=== PATIENT | female | born 1970 | race Two or more races ===

== ENCOUNTER 2020-04-05 06:55 | Inpatient (IN) | payer MEDICARE, MEDICAID ==
[~2020-04-05] VITALS: Ht 157.5 cm; Wt 50.4 kg
[2020-04-05 07:02] VITALS: BP 107/72
--- NOTE | 2020-04-05 07:05 | Emergency Room Report ---
History of Present Illness General Chief Complaint: Syncope Source: Patient Present Illness HPI Patient nearly passed out when she stood up this morning. Family were able to catch her and lay her down. She felt somewhat better when laying down. Paramedics found that she was orthostatic. She also remained tachycardic. Accu -Chek was normal in the field. She has a history of colon cancer and is receiving chemotherapy actively. She has a Port-A-Cath in her right chest. She complains about some shortness of breath today. She denies fevers or chills. She has been passing some blood in her stool but the stool is been brown in color. She denies dysuria, sore throat, productive cough or chest pain. She denies body pain at this time. Discussed with her oncologist Dr. Nunez at [facility]. He states that she has colon cancer with metastasis to liver brain and lung. Her bilirubin in the past prior to chemotherapy was 5. After chemotherapy is been down to the 1.3 range. She has 40% liver function at this time. She has metastasis to her lungs that also in the mediastinum and peripherally. She also has brain metastasis and has undergone radiation. Before chemotherapy the patient had ascites and this was improved after chemotherapy. At this point she is at the end stage of her illness although he is still treating her with chemotherapy. He stated that the chemotherapy might have effects of increasing her white blood cell count. Pelvic mass also. Her oncologist had a discussion with her about end-of-life treatment. She did not sign a DNR agreement with him. 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: No Patient History Past Medical History: see triage record, other - Colon cancer Past Surgical History: other - Port-A-Cath Social History: Denies: smoking, alcohol use, drug use Social History Narrative Born in [facility], lives with family Reviewed Nursing Documentation: PMH: Agreed; PSxH: Agreed Nursing Documentation-PMH Past Medical History: No History, Except For Review of Systems All Other Systems: negative except mentioned in HPI Physical Exam Vital Signs Date Time Temp Pulse Resp B/P (MAP) Pulse Ox O2 Delivery O2 Flow Rate FiO2 7/15/20 06:45 98.4 110 16 112/69 (83) 98 Room Air Sp02 EP Interpretation: reviewed, normal General Appearance: well appearing, no apparent distress, GCS 15 Head: normocephalic Eyes: bilateral eye PERRL, bilateral eye conjunctivae pale ENT: normal pharynx, moist mucus membranes Neck: full range of motion, supple, no meningismus Respiratory: lungs clear, normal breath sounds, no respiratory distress, other - Port-A-Cath right Cardiovascular #1: tachycardia Cardiovascular #2: 2+ radial (R) Gastrointestinal: normal inspection, normal bowel sounds, non tender, non- distended, mass - Suprapubic Genitourinary: no CVA tenderness Musculoskeletal: back normal, normal range of motion, no calf tenderness Neurologic: alert, oriented x3, grossly normal Psychiatric: mood/affect normal Skin: no rash, warm/dry, pallor, other - Port-A-Cath site without erythema or induration Procedures Critical Care Time Critical Care Time Total Critical Care Time: 45 min bedside evaluation and treatment excludes procedures (EKG). Reason for critical care: Sepsis, determination of past medical history, repeat evaluations, discussion with oncologist regarding history and end-of-life decisions Possible complications: hypotension, hypertension, RI, shock, arrhythmias, metabolic acidosis, end organ damage, respiratory failure. Interventions: Sepsis resuscitation, analgesia, tracing antibiotics, sepsis reevaluation Course: Patient presented post syncope. Patient was orthostatic in the field. Port-A-Cath accessed and fluid resuscitation initiated. Elevated white count and lactic acid led to more aggressive fluid resuscitation as well as antibiotic initiation. Long discussion with treating oncologist regarding patient's status and determination of level of care. Discussion with family. Findings discussed with patient. Tachycardia resolved and no evidence of hypotension. Due to elevated liver function tests ultrasound performed. No suggestion of cholecystitis. Liver and other organ metastases identified. Consultations: nursing staff, EMS, family, treating oncologist Performed by: Dr. Govea Tolerated well condition = serious Medical Decision Making Diagnostic Impression: Primary Impression: Sepsis Qualified Codes: A41.9 - Sepsis, unspecified organism; R65.20 - Severe sepsis without septic shock Additional Impressions: Syncope Qualified Codes: R55 - Syncope and collapse Metastatic colon cancer in female COVID-19 ruled out ER Course Patient undergoing chemotherapy for colon cancer presents with needing near syncope. Differential includes acute myocardial infarction, sepsis, GI bleed, anemia electrolyte imbalance, COVID-19 amongst others. Patient evaluated with EKG, chest x-ray and labs. She is tachycardic at this time and needs fluids. Patient placed on a registered nurse cardiac. We will access her Port-A-Cath for further care. Called with WBC = 46K. Antibiotics begun. Starting vancomycin and Zosyn initially. If urine is the source will add Levaquin. If urine is clear we will add Flagyl. Consideration of adding azithromycin also. Given the seriousness of this patient's presentation COVID-19 rapid testing performed. Chest x-ray with increased quezada at the left base and Port-A-Cath. Lung nodules. Difficult to ascertain if infiltrates although patient is satting in 100% which makes this less likely. Rapid COVID-19 test negative. Attempting to call her private physicians Andrey Mayer. Attempting to call her oncologist Dr. Nunez. Long discussion with Dr. Nunez. (See Hx) Expanded antibiotic coverage - added both Levaquin and Flagyl. U/S as below. Metastases and masses. Patient with abdominal pain. Requesting Dilaudid. HR 88, clinically improved. BP slightly low. Patient admitted telemetry. Laboratory Tests Test 04/05/20 07:03 04/05/20 07:45 04/05/20 08:45 White Blood Count 46.0 K/UL (4.8-10.8) *H Red Blood Count 4.29 M/UL (4.20-5.40) Hemoglobin 10.7 G/DL (12.0-16.0) L Hematocrit 35.4 % (37.0-47.0) L Mean Corpuscular Volume 82 FL (80-99) Mean Corpuscular Hemoglobin 25.0 PG (27.0-31.0) L Mean Corpuscular Hemoglobin Concent 30.3 G/DL (32.0-36.0) L Red Cell Distribution Width 19.7 % (11.6-14.8) H Platelet Count 223 K/UL (150-450) Mean Platelet Volume 8.1 FL (6.5-10.1) Neutrophils (%) (Auto) % (45.0-75.0) Lymphocytes (%) (Auto) % (20.0-45.0) Monocytes (%) (Auto) % (1.0-10.0) Eosinophils (%) (Auto) % (0.0-3.0) Basophils (%) (Auto) % (0.0-2.0) Differential Total Cells Counted 100 Neutrophils % (Manual) 87 % (45-75) H Lymphocytes % (Manual) 6 % (20-45) L Monocytes % (Manual) 1 % (1-10) Eosinophils % (Manual) 0 % (0-3) Basophils % (Manual) 0 % (0-2) Band Neutrophils 6 % (0-8) Platelet Estimate Adequate Platelet Morphology Normal Hypochromasia 1+ Anisocytosis 2+ Prothrombin Time 11.3 SEC (9.30-11.50) Prothrombin Time INR 1.0 (0.9-1.1) Activated Partial Thromboplast Time 28 SEC (23-33) Sodium Level 132 MMOL/L (136-145) L Potassium Level 4.1 MMOL/L (3.5-5.1) Chloride Level 99 MMOL/L (98-107) Carbon Dioxide Level 21 MMOL/L (21-32) Anion Gap 13 mmol/L (5-15) Blood Urea Nitrogen 13 mg/dL (7-18) Creatinine 0.7 MG/DL (0.55-1.30) Estimated Glomerular Filtration Rate > 60 mL/min (>60) Glucose Level 86 MG/DL (74-106) Lactic Acid Level 4.30 mmol/L (0.4-2.0) H 1.30 mmol/L (0.66-2.22) Calcium Level 8.7 MG/DL (8.5-10.1) Magnesium Level 1.7 MG/DL (1.8-2.4) L Ferritin 405 NG/ML (8-388) H Total Bilirubin 1.5 MG/DL (0.2-1.0) H Direct Bilirubin 0.7 MG/DL (0.0-0.3) H Aspartate Amino Transferase (AST) 125 U/L (15-37) H Alanine Aminotransferase (ALT) 154 U/L (12-78) H Alkaline Phosphatase 547 U/L (46-116) H Lactate Dehydrogenase 456 U/L (81-234) H Total Creatine Kinase 32 U/L (26-308) Troponin I 0.000 ng/mL (0.000-0.056) C-Reactive Protein, Quantitative 2.2 mg/dL (0.00-0.90) H Pro-B-Type Natriuretic Peptide 73 pg/mL (0-125) Total Protein 6.9 G/DL (6.4-8.2) Albumin 2.5 G/DL (3.4-5.0) L Globulin 4.4 g/dL Albumin/Globulin Ratio 0.6 (1.0-2.7) L Lipase 243 U/L (73-393) Urine Color Yellow Urine Appearance Clear Urine pH 7 (4.5-8.0) Urine Specific [place] 1.010 (1.005-1.035) Urine Protein 1+ (NEGATIVE) H Urine Glucose (UA) Negative (NEGATIVE) Urine Ketones Negative (NEGATIVE) Urine Blood 1+ (NEGATIVE) H Urine Nitrite Negative (NEGATIVE) Urine Bilirubin Negative (NEGATIVE) Urine Urobilinogen 4 MG/DL (0.0-1.0) H Urine Leukocyte Esterase 2+ (NEGATIVE) H Urine RBC 0-2 /HPF (0 - 2) Urine WBC 2-4 /HPF (0 - 2) Urine Squamous Epithelial Cells Occasional /LPF Urine Bacteria Occasional /HPF (NONE) Microbiology Date/Time Source Procedure Growth Status 04/05/20 07:30 Nasopharynx SARS-CoV-2 RdRp Gene Assay - Final Complete EKG Diagnostic Results Rate: tachycardiac Rhythm: NSR ST Segments: no acute changes Rhythm Strip Diag. Results Rhythm: no PVC's, no ectopy, other - Sinus tachycardia Chest X-Ray Diagnostic Results Chest X-Ray Diagnostic Results : Chest X-Ray Ordered: Yes # of Views/Limited/Complete: 1 View Indication: Shortness of Breath EP Interpretation: Yes Interpretation: no effusion, no pneumothorax, other - Port-A-Cath right, increased quezada left base CT/MRI/US Diagnostic Results CT/MRI/US Diagnostic Results : Imaging Test Ordered: Ultrasound abdomen Impression Impression: 8.3 x 6.3 cm pelvic soft tissue mass. Particularly given stated clinical history of hysterectomy, the possibility of neoplasm should be considered Pancreatic soft tissue mass, likewise raises concern for neoplasm. Heterogeneous liver, particularly striking in the left hepatic lobe which appears enlarged. While possibly on the basis of hepatocellular disease such is geographic fatty infiltration, appearance and presence of above reported findings raises concern for neoplastic infiltration. In addition, there is a discrete 1.8 cm mass within or adjacent to the left hepatic lobe Recommend CT for further evaluation of the above findings if these have not been worked up elsewhere Cholelithiasis. Gallbladder wall thickening raises possibility of acute cholecystitis. Consider hepatobiliary nuclear scan if there is high clinical suspicion Negative for dilated bile ducts Last Vital Signs Date Time Temp Pulse Resp B/P (MAP) Pulse Ox O2 Delivery O2 Flow Rate FiO2 04/05/20 16:00 97.9 82 18 91/58 (69) 99 04/05/20 12:35 Room Air Status: improved Disposition: ADMITTED INPATIENT Condition: Serious James Govea MD Apr 05, 2020 07:05
[2020-04-05 07:22] LABS: HEMATOCRIT 35.4 % (37.0-47.0); HEMOGLOBIN 10.7 G/DL (12.0-16.0); MEAN CORPUSCULAR VOLUME 82 FL (80-99); PLATELET COUNT 223 K/UL (150-450); RED BLOOD COUNT 4.29 M/UL (4.20-5.40); RED CELL DISTRIBUTION WIDTH 19.7 % (11.6-14.8)
[2020-04-05 07:37] LABS: ANION GAP 13 mmol/L (5-15); BLOOD UREA NITROGEN 13 mg/dL (7-18); CALCIUM 8.7 MG/DL (8.5-10.1); CARBON DIOXIDE 21 MMOL/L (21-32); CHLORIDE 99 MMOL/L (98-107); CREATININE 0.7 MG/DL (0.55-1.30); POTASSIUM 4.1 MMOL/L (3.5-5.1); SODIUM 132 MMOL/L (136-145)
[2020-04-05] MEDS ORDERED: Vancomycin 1 GM in NS 275 ML IVPB ONE (07:45)
[2020-04-05] MEDS ORDERED: Piperacillin/Tazobactam 3.375 GM in NS 110 ML IVPB ONE (07:45)
[2020-04-05 07:51] LABS: ALANINE AMINOTRANSFERASE 154 U/L (12-78); ALBUMIN 2.5 G/DL (3.4-5.0); ALBUMIN/GLOBULIN RATIO 0.6 (1.0-2.7); ALKALINE PHOSPHATASE 547 U/L (46-116); ASPARTATE AMINO TRANSFERASE 125 U/L (15-37); BILIRUBIN,TOTAL 1.5 MG/DL (0.2-1.0); CREATINE KINASE 32 U/L (26-308)
[2020-04-05 07:52] LABS: BILIRUBIN,DIRECT 0.7 MG/DL (0.0-0.3)
[2020-04-05 08:28] LABS: APPEARANCE,URINE CLEAR; BILIRUBIN, URINE NEGATIVE (NEGATIVE); GLUCOSE, URINE (UA) NEGATIVE (NEGATIVE); KETONES,URINE NEGATIVE (NEGATIVE); LEUKOCYTE ESTERASE ,URINE 2+ (NEGATIVE); NITRITE,URINE NEGATIVE (NEGATIVE); PH,URINE 7 (4.5-8.0); PROTEIN,URINE 1+ (NEGATIVE); UROBILINOGEN,URINE 4 MG/DL (0.0-1.0)
[2020-04-05 08:29] LABS: COLOR,URINE YELLOW
[2020-04-05] MEDS ORDERED: TRAMADOL HCL50 MG ORAL (08:38)
[2020-04-05] MEDS ORDERED: ZOFRAN4 M3 ORAL (08:38)
[2020-04-05 09:13] VITALS: BP 102/75
[2020-04-05] MEDS ORDERED: Hydromorphone 0.5mg/0.5ml inj ONE (10:14)
[2020-04-05] MEDS ORDERED: Hydromorphone 0.5mg/0.5ml inj IVP ONE (10:15)
[2020-04-05 11:00] VITALS: BP 99/65
--- NOTE | 2020-04-05 11:08 | Diagnostic Imaging Report ---
Indication: Abdominal pain Technique: Torrez-scale and duplex images of the upper abdomen were obtained Comparison: none Findings: Gallbladder contains gallstones. The gallbladder wall is slightly thickened, measuring just over 3 mm thick. Sonographic Coe's sign is negative. Common bile duct measures 3 mm in diameter. No intrahepatic biliary ductal dilatation. Liver demonstrates heterogeneous echogenicity. There is a discrete slightly hyperechoic mass measuring 1.8 cm within or adjacent to the left hepatic lobe. The left hepatic lobe is diffusely enlarged and heterogeneous, appears infiltrated. Portal vein and hepatic veins are patent. 3 cm hypoechoic lesion is seen within or adjacent to the pancreatic body. Spleen is unremarkable. Left kidney measures cm in length. Right kidney measures 11.2 cm length. Both kidneys demonstrate normal echogenicity. There is no hydronephrosis. No focal abnormality . Abdominal aorta is partially obscured by bowel gas, visualized portions are non-aneurysmal . There is an 8.3 x 6.3 cm soft tissue mass within the pelvis. Patient is reportedly status post hysterectomy. The bladder is unremarkable. Impression: 8.3 x 6.3 cm pelvic soft tissue mass. Particularly given stated clinical history of hysterectomy, the possibility of neoplasm should be considered Pancreatic soft tissue mass, likewise raises concern for neoplasm. Heterogeneous liver, particularly striking in the left hepatic lobe which appears enlarged. While possibly on the basis of hepatocellular disease such is geographic fatty infiltration, appearance and presence of above reported findings raises concern for neoplastic infiltration. In addition, there is a discrete 1.8 cm mass within or adjacent to the left hepatic lobe Recommend CT for further evaluation of the above findings if these have not been worked up elsewhere Cholelithiasis. Gallbladder wall thickening raises possibility of acute cholecystitis. Consider hepatobiliary nuclear scan if there is high clinical suspicion Negative for dilated bile ducts
[2020-04-05] MEDS ORDERED: Omnipaque-300 100ml vial INJ PRN (11:30)
[2020-04-05] MEDS ORDERED: Piperacillin/Tazobactam 3.375 GM in NS 110 ML IVPB SCH (14:00)
[2020-04-05] MEDS: Piperacillin/Tazobactam 3.375 GM in NS 110 ML IVPB SCH ×2 (14:08→22:13)
[2020-04-05] MEDS: Heparin 5000 units/ml inj SUBQ SCH ×2 (14:08→22:12)
--- NOTE | 2020-04-05 14:18 | Diagnostic Imaging Report ---
Indication: Abnormal chest sounds Technique: One view of the chest Comparison: none Findings: A 2 cm nodule is seen in the lower right lung. Other smaller nodules are seen bilaterally. Normal heart size. No infiltrates. The pleural spaces are clear. There is a right chest port catheter Impression: Bilateral lung nodules. Per the electronic medical record, patient has history of pulmonary metastases. No acute process Right chest port catheter
[2020-04-05 16:00] VITALS: BP 91/58
[2020-04-05] MEDS ORDERED: HYDROmorphone 1mg/ml Carpuject IVP PRN (18:00)
--- NOTE | 2020-04-05 18:15 | Consultation ---
DATE OF CONSULTATION: 04/05/2020 INFECTIOUS DISEASES CONSULTATION CONSULTING PHYSICIAN: Jeffrey Szymanski MD REFERRING PHYSICIAN: James Crawford MD REASON FOR CONSULTATION: Leukocytosis. HISTORY OF PRESENTING ILLNESS: This is a 49-year-old lady with history of hypertension, colon cancer, status post chemotherapy, radiation therapy surgery, who comes in with abdominal pain, nausea and vomiting. She was found to have leukocytosis and an Infectious Diseases consultation has been obtained for antibiotics. PAST MEDICAL HISTORY: 1. History of hypertension. 2. History of colon cancer. SOCIAL HISTORY: She does not smoke, drink, or use drugs. FAMILY HISTORY: Noncontributory. REVIEW OF SYSTEMS: RESPIRATORY: No fever, chills, cough, shortness of breath or chest pain. CARDIAC: No chest pain. No palpitation. No dizziness. No syncope. GASTROINTESTINAL: She has nausea and vomiting. She complains of abdominal pain. No diarrhea. MEDICATIONS: As an inpatient, she is on IV vancomycin, subcutaneous heparin, Zosyn, magnesium, Zofran, Tylenol. ALLERGIES: To morphine noted. PHYSICAL EXAMINATION: VITAL SIGNS: Temperature of 98.2, T-max of 98.4, pulse of 94, respiratory rate rate 20, blood pressure 105/67, O2 saturation of 100% on room air. HEENT: Pupils are equally reactive to light and accommodation. Mouth appears clean without thrush. NECK: Supple. No adenopathy. No JVD. CARDIOVASCULAR: Regular rate and rhythm. No murmurs. LUNGS: Clear to auscultation bilaterally. No crackles. No wheezes. ABDOMEN: Soft. Tenderness noted diffusely. No organomegaly. EXTREMITIES: No cyanosis, no clubbing, no edema. Right subclavian catheter noted. LABORATORY AND DIAGNOSTIC DATA: White count 46, hemoglobin 10.7, hematocrit 35.4, MCV 82, platelet count 223. Sodium 132, potassium 4.1, chloride 99, bicarb 21, BUN 13, creatinine 0.1, glucose 86, calcium 8.7. Total bilirubin 1.5, direct bilirubin 0.7, AST 125, ALT 154, alkaline phosphatase 547, LDH 456. CK of 32. Troponin 0. C-reactive protein 2.2. Beta natriuretic peptide 73. Total protein 6.9, albumin 2.5, lipase of 243. UA showing 2 to 4 white cells. COVID-19 test is negative. Blood cultures are pending. Abdominal ultrasound showing pelvic soft tissue mass, pancreatic soft tissue mass, heterogenous liver, gallbladder wall thickening suspicious for acute cholecystitis. Negative for dilated bile duct. ASSESSMENT: This is a 49-year-old lady with history of hypertension, colon cancer status post chemotherapy with metastasis, who comes in with nausea, vomiting, and abdominal pain, would be concerned regarding 1. Cholecystitis. 2. Would be concerned regarding abdominal necrotic abscesses or obstruction. 3. Hypertension. 4. Colon cancer. 5. We would like to rule out sepsis as a possibility. PLAN: 1. Continue IV vancomycin and Zosyn. 2. We will order a CT abdomen and pelvis. 3. We will follow up cultures. 4. We will suggest a GI evaluation. I would like to thank, Dr. Crawford, for this consultation. Jeffrey Szymanski M.D. DR: LAISA JOB#: [id number] CC: James Crawford M.D.
[2020-04-05 20:00] VITALS: BP 104/59
[2020-04-05] MEDS: Vancomycin 1gm in D5W 275ml IVPB SCH (20:35)
[2020-04-05] MEDS ORDERED: Vancomycin 1gm in D5W 275ml IVPB SCH (22:00)
[2020-04-06] VITALS: BP 101/55
--- NOTE | 2020-04-06 00:29 | Consultation ---
DATE OF CONSULTATION: 04/05/2020 CARDIOLOGY CONSULTATION CONSULTING PHYSICIAN: James Crawford MD. REFERRING PHYSICIAN: London Red MD. REASON FOR CONSULTATION: Orthostatic hypotension. HISTORY OF PRESENT ILLNESS: This 49-year-old female has a history of metastatic poorly differentiated colon cancer. She is undergoing chemotherapy, the most recent given about 5 days ago. She has also been undergoing radiation therapy and has had surgery. Based on discussions with her oncologist this morning, her colon cancer is widely advanced and end-stage. The patient has been feeling weak, dizzy, and lightheaded. She had 2 episodes that are described as losing consciousness transiently especially when sitting up. She has had some nausea, but no vomiting today. She was seen in the emergency room and admitted to the hospital based on her presenting symptoms, clinical history, and abnormal laboratory findings. PAST MEDICAL HISTORY: Includes hypertension, colon cancer with mets to the brain, lungs, and liver. MEDICATIONS: Reviewed and reconciled. FAMILY HISTORY: Noncontributory. SOCIAL HISTORY: Negative for smoking, alcohol, or substance abuse. No advance directives. Presently Full Code. Her oncologist states that palliative care has just started getting involved with the patient. ALLERGIES: Morphine. REVIEW OF SYSTEMS: Otherwise unremarkable. PHYSICAL EXAMINATION: VITAL SIGNS: Afebrile, blood pressure 105/65, heart rate 94, respirations 20. HEENT: Pallor. Sclerae anicteric. Oropharynx clear. Mucous membranes dry. NECK: Supple. Neck veins flat. LUNGS: Clear. CARDIAC: Regular rhythm and rate. Normal S1, S2 with no murmur. ABDOMEN: Soft. No guarding, rebound, or ascites. EXTREMITIES: No edema. LABORATORY AND DIAGNOSTIC DATA: Abdominal ultrasound, gallbladder wall thickening noted. White count 46,000, hemoglobin 10.7. BUN 13, creatinine 0.7, potassium 4.1. Lactic acid 4.3. Troponin negative. Albumin 2.5. IMPRESSION: 1. Orthostatic hypotension and near-syncope. 2. Hypovolemia and dehydration. 3. Severe leukocytosis, maybe due to severe sepsis versus chemotherapeutic-associated response. 4. Lactic acidosis. 5. Severe protein-calorie malnutrition. 6. Metastatic carcinoma of the colon. PLAN: 1. Cardiac monitoring. 2. Saline hydration. 3. Antiemetics. 4. Serial lactic acid levels. 5. Antimicrobials per Infectious Disease custom decorating consultant. 6. IV fluid hydration. 7. DVT prophylaxis. James Crawford M.D. DR: KASSANDRA JOB#: [id number] CC:
[2020-04-06 04:00] VITALS: BP 98/87
[2020-04-06] MEDS: Piperacillin/Tazobactam 3.375 GM in NS 110 ML IVPB SCH ×3 (05:00→22:30)
[2020-04-06] MEDS: Heparin 5000 units/ml inj SUBQ SCH ×3 (05:01→21:58)
[2020-04-06 06:27] LABS: HEMATOCRIT 30.1 % (37.0-47.0); HEMOGLOBIN 9.3 G/DL (12.0-16.0); MEAN CORPUSCULAR VOLUME 82 FL (80-99); PLATELET COUNT 156 K/UL (150-450); RED BLOOD COUNT 3.68 M/UL (4.20-5.40); WHITE BLOOD COUNT 21.8 K/UL (4.8-10.8)
[2020-04-06 06:55] LABS: ALANINE AMINOTRANSFERASE 105 U/L (12-78); ALBUMIN 2.2 G/DL (3.4-5.0); ALBUMIN/GLOBULIN RATIO 0.6 (1.0-2.7); ALKALINE PHOSPHATASE 443 U/L (46-116); ANION GAP 7 mmol/L (5-15); ASPARTATE AMINO TRANSFERASE 69 U/L (15-37); BILIRUBIN,TOTAL 1.7 MG/DL (0.2-1.0); BLOOD UREA NITROGEN 7 mg/dL (7-18); CALCIUM 8.1 MG/DL (8.5-10.1); CARBON DIOXIDE 25 MMOL/L (21-32); CHLORIDE 105 MMOL/L (98-107); CREATININE 0.6 MG/DL (0.55-1.30); POTASSIUM 4.2 MMOL/L (3.5-5.1); SODIUM 137 MMOL/L (136-145)
[2020-04-06 08:00] VITALS: BP 103/63
[2020-04-06] MEDS: Vancomycin 1gm in D5W 275ml IVPB SCH (08:51)
--- NOTE | 2020-04-06 09:21 | Infectious Diseases Prog Note ---
Assessment/Plan Assessment/Plan A; 1. Cholecystitis. 2. Leukocytosis improving 3. Hypertension. 4. Colon cancer with metastases 5. Anemia PLAN: 1. Continue IV vancomycin and Zosyn. 2. We will f/u CT abdomen and pelvis. 3. We will follow up cultures. Subjective ROS Limited/Unobtainable: Yes Constitutional: Denies: fever Respiratory: Reports: productive cough Musculoskeletal: Denies: pain Allergies: Coded Allergies: MORPHINE (Verified Allergy, Unknown, 04/05/20) Objective Last 24 Hour Vital Signs Date Time Temp Pulse Resp B/P (MAP) Pulse Ox O2 Delivery O2 Flow Rate FiO2 04/06/20 08:00 98.7 80 18 103/63 (76) 100 04/06/20 04:00 97.9 79 18 98/87 (91) 100 04/06/20 03:33 76 04/06/20 00:00 98.0 74 20 101/55 (70) 100 04/05/20 23:46 76 04/05/20 21:00 Room Air 04/05/20 20:00 97.7 77 20 104/59 (74) 96 04/05/20 19:18 90 04/05/20 16:00 97.9 82 18 91/58 (69) 99 04/05/20 16:00 86 04/05/20 13:39 96 04/05/20 12:35 Room Air 04/05/20 11:00 98.1 94 20 99/65 (76) 99 04/05/20 10:45 98.2 94 20 105/67 100 Room Air 04/05/20 10:19 98.1 Height (Feet): 5 Height (Inches): 2.00 Weight (Pounds): 111 General Appearance: no acute distress HEENT: mucous membranes moist Respiratory/Chest: lungs clear Cardiovascular: normal rate, other - Portacath Abdomen: soft, non tender Extremities: no edema Neurologic/Psychiatric: alert, responsive Microbiology Date/Time Source Procedure Growth Status 04/05/20 07:30 Nasopharynx SARS-CoV-2 RdRp Gene Assay - Final Complete Laboratory Tests Test 04/06/20 05:35 White Blood Count 21.8 K/UL (4.8-10.8) #H Red Blood Count 3.68 M/UL (4.20-5.40) L Hemoglobin 9.3 G/DL (12.0-16.0) L Hematocrit 30.1 % (37.0-47.0) L Mean Corpuscular Volume 82 FL (80-99) Mean Corpuscular Hemoglobin 25.3 PG (27.0-31.0) L Mean Corpuscular Hemoglobin Concent 30.9 G/DL (32.0-36.0) L Red Cell Distribution Width 20.0 % (11.6-14.8) H Platelet Count 156 K/UL (150-450) Mean Platelet Volume 7.1 FL (6.5-10.1) Neutrophils (%) (Auto) % (45.0-75.0) Lymphocytes (%) (Auto) % (20.0-45.0) Monocytes (%) (Auto) % (1.0-10.0) Eosinophils (%) (Auto) % (0.0-3.0) Basophils (%) (Auto) % (0.0-2.0) Differential Total Cells Counted 100 Neutrophils % (Manual) 82 % (45-75) H Lymphocytes % (Manual) 11 % (20-45) L Monocytes % (Manual) 1 % (1-10) Eosinophils % (Manual) 1 % (0-3) Basophils % (Manual) 0 % (0-2) Band Neutrophils 5 % (0-8) Platelet Estimate Adequate Platelet Morphology Normal Hypochromasia 1+ Anisocytosis 1+ Sodium Level 137 MMOL/L (136-145) Potassium Level 4.2 MMOL/L (3.5-5.1) Chloride Level 105 MMOL/L (98-107) Carbon Dioxide Level 25 MMOL/L (21-32) Anion Gap 7 mmol/L (5-15) Blood Urea Nitrogen 7 mg/dL (7-18) Creatinine 0.6 MG/DL (0.55-1.30) Estimat Glomerular Filtration Rate > 60 mL/min (>60) Glucose Level 69 MG/DL (74-106) L Calcium Level 8.1 MG/DL (8.5-10.1) L Total Bilirubin 1.7 MG/DL (0.2-1.0) H Direct Bilirubin 1.0 MG/DL (0.0-0.3) H Aspartate Amino Transf (AST/SGOT) 69 U/L (15-37) H Alanine Aminotransferase (ALT/SGPT) 105 U/L (12-78) H Alkaline Phosphatase 443 U/L (46-116) H Total Protein 6.0 G/DL (6.4-8.2) L Albumin 2.2 G/DL (3.4-5.0) L Globulin 3.8 g/dL Albumin/Globulin Ratio 0.6 (1.0-2.7) L Thyroid Stimulating Hormone (TSH) 1.196 uiU/mL (0.358-3.740) Current Medications Medications (Trade) Dose Ordered Sig/Gómez Route PRN Reason Start Time Stop Time Status Last Admin Dose Admin Acetaminophen (Tylenol) 650 mg Q4H PRN ORAL fever/pain/NAM 04/05/20 09:45 05/05/20 09:44 04/05/20 16:59 Barium Sulfate (Readi-Cat 2) 450 ml NOW PRN ORAL Radiology Procedure 04/05/20 11:30 04/07/20 11:24 Chlorhexidine Gluconate ([place]-Hex 2%) 1 applic DAILY@2000 TOPIC 04/06/20 20:00 07/05/20 19:59 Heparin Sodium (Porcine) (Heparin 5000 units/ml) 5,000 units EVERY 8 HOURS SUBQ 04/05/20 14:00 05/20/20 13:59 04/06/20 05:01 Hydromorphone HCl (Dilaudid) 1 mg Q4H PRN IVP PAIN 4-10 04/05/20 18:00 04/12/20 17:59 04/05/20 18:09 Iohexol (OMNIPAQUE-300 100ml) 100 ml NOW PRN INJ Radiology Procedure 04/05/20 11:30 04/07/20 11:24 Ondansetron HCl (Zofran) 4 mg Q4H PRN IVP N/V 04/05/20 09:45 05/05/20 09:44 Piperacillin Sod/ Tazobactam Sod 3.375 gm/Sodium Chloride 110 ml @ 27.5 mls/hr EVERY 8 HOURS IVPB 04/05/20 14:00 04/12/20 13:59 04/06/20 05:00 Sodium Chloride 1,000 ml @ 125 mls/hr Q8H IV 04/05/20 09:45 05/05/20 09:44 04/06/20 01:00 Vancomycin HCl (Vanco pharmacy to dose) 1 ea DAILY PRN MISC Per rx protocol 04/05/20 09:45 05/05/20 09:44 Vancomycin HCl 1 gm/Dextrose 275 ml @ 183.708 mls/hr Q12HR@0800,1999 IVPB 04/05/20 20:00 04/10/20 19:59 04/06/20 08:51 Chance Monaco MD Apr 06, 2020 09:21
--- NOTE | 2020-04-06 11:59 | Diagnostic Imaging Report ---
Clinical Indication: Abdominal pain Technique: Patient given oral contrast. IV administration nonionic contrast. Venous phase spiral acquisition obtained through the abdomen and pelvis. Multiplanar reconstructions were generated. Total dose length product 184 mGycm. CTDIvol(s) 3 mGy. Dose reduction achieved using automated exposure control Comparison: No comparison CT scans. Reference made to sonogram 04/05/2020 Findings: Prior sonogram report indicates stated history of prior hysterectomy. However, the uterus is evident. It is abnormal in appearance, with a very indistinct and possibly thickened endometrial stripe. Adjacent to the uterus, due to its right, is a large lobulated mass which measures 8 cm AP by 8.6 cm transverse. This is connected to a rounded peritoneal mass which measures 2.3 cm. There is a mass within the lesser sac just cephalad to the body of the pancreas which measures 4.7 cm. There is a mass in the wall of the ascending colon which measures approximately 4 cm AP by 2.5 cm transverse by 4.2 cm craniocaudad. More ill-defined soft tissue opacities are seen in the anterior peritoneal space and in the omentum. Innumerable low-attenuation lesions are seen scattered throughout the liver. Liver demonstrates an unusual capsular calcifications posteriorly. The gallbladder is nondistended, contains gallstones. No biliary ductal dilatation. The above described peripancreatic lesion is extrapancreatic, and the pancreas itself appears unremarkable. The spleen is upper limits of normal in size. There is a 9 mm mass within the anterior spleen. The adrenals are unremarkable., The kidneys are unremarkable. No retroperitoneal or mesenteric mass or adenopathy demonstrated. There is a circumaortic left renal vein incidentally noted. No evidence of diverticulosis or diverticulitis. The appendix is not definitely visualized, but no findings to suggest acute appendicitis are evident. No small bowel distention. Ingested contrast is seen all the way through the small bowel and most of the way through the colon. No small bowel wall thickening. No free or loculated intraperitoneal gas or fluid is evident. The distal esophagus is unremarkable. There is wall thickening of the gastric antrum and duodenal bulb. The included lung bases demonstrate multiple masses bilaterally. The bones are unremarkable. Impression: Evidence of disseminated neoplasm in patient with known history of colon carcinoma, with numerous masses in the pelvis, peritoneal space, omentum, lesser sac, liver, spleen, and visualized lung bases. There is also a mass that appears to be within the wall of the ascending colon Abnormal wall thickening of the gastric antrum and duodenal bulb. This may indicate gastritis or other inflammatory process, but could also indicate neoplastic infiltration. The CT scanner at [facility] is accredited by the [employer] and the scans are performed using protocols designed to limit radiation exposure to as low as reasonably achievable to attain images of sufficient resolution adequate for diagnostic evaluation.
[2020-04-06 12:00] VITALS: BP 103/72
[2020-04-06 16:00] VITALS: BP 95/65
--- NOTE | 2020-04-06 16:15 | History and Physical Report ---
DATE OF ADMISSION: 04/05/2020 CHIEF COMPLAINT: Hypotension, dizziness, near syncope. HISTORY OF PRESENT ILLNESS: The patient is a 49-year-old female. She has a history of metastatic colon cancer, who presented from home with complaints of feeling dizzy. She last received chemotherapy approximately a week ago. She has also been receiving radiation therapy. She denies any fevers or chills. No chest pain or shortness of breath. She has had poor p.o. intake, some nausea, but no vomiting. No melena or bright red blood per rectum. On evaluation in the emergency room, she was noted to have white count of 46,000. She had elevated liver function tests. UA was clear. Ultrasound done in the ER showed some mild gallbladder wall thickening. Chest x-ray showed bilateral nodules. In light of significant leukocytosis, the patient was pancultured and is admitted for further evaluation for possible sepsis. PAST MEDICAL HISTORY: History of hypertension, history of metastatic colon cancer. CURRENT MEDICATIONS: Reconciled and reviewed. ALLERGIES: None. FAMILY HISTORY: None. SOCIAL HISTORY: Negative for tobacco, ethanol, or drugs. REVIEW OF SYSTEMS: GENERAL: Positive for malaise and weakness. HEENT: No headaches or visual changes. CARDIOPULMONARY: No chest pain or shortness of breath. GASTROINTESTINAL: Mild nausea. No abdominal pain. GENITOURINARY: No urgency or frequency. MUSCULOSKELETAL: No joint pain or swelling. NEUROLOGICAL: No evidence of seizures. PHYSICAL EXAMINATION: VITAL SIGNS: Temperature was 98, pulse 114, respirations 24, blood pressure 107/72. GENERAL: The patient is a thin, chronically ill-appearing female. She is awake and alert. HEENT: Head is normocephalic and atraumatic. Sclerae are anicteric. Oropharynx is clear. NECK: Supple. HEART: Regular rate and rhythm. LUNGS: Clear. ABDOMEN: Soft, nontender, and nondistended. There is no rebound or guarding. EXTREMITIES: Without clubbing, cyanosis, or edema. The patient has a Port-A-Cath in the right chest area. LABORATORY DATA: White count 46,000, hemoglobin 10. Sodium 132. Total bilirubin of 1.5, AST 125, ALT 154. ASSESSMENT: This is an unfortunate female with a history of metastatic colon cancer, admitted with complaints of leukocytosis, dehydration, and hypotension. PLAN: 1. Followup CT scan of the abdomen. 2. Broad-spectrum IV antibiotics. 3. ID and Cardiology evaluation. 4. GI evaluation. 5. DVT and stress ulcer prophylaxes. 6. The patient's status is currently guarded. [place] Red M.D. DR: JATIN JOB#: [id number] CC:
[2020-04-06] MEDS: HYDROmorphone 1mg/ml Carpuject IVP PRN ×2 (18:04→22:18)
[2020-04-06 20:00] VITALS: BP 118/80
[2020-04-06] MEDS ORDERED: Dyna-Hex 2% Top Sol 2oz TOPIC SCH (20:00)
[2020-04-06] MEDS ORDERED: Vancomycin 1 GM in D5W 275 ML IVPB SCH (20:00)
[2020-04-06] MEDS: Dyna-Hex 2% Top Sol 2oz TOPIC SCH (20:00)
[2020-04-06] MEDS: Vancomycin 1.25gm/NS Premix IVPB SCH (21:55)
--- NOTE | 2020-04-06 23:55 | Cardiology Progress Note ---
Subjective DATE OF SERVICE: Apr 06, 2020 Says she feels better. No SOB. NO N/V. Much less dizziness; able to sit upright. Objective Last 24 Hour Vital Signs Date Time Temp Pulse Resp B/P (MAP) Pulse Ox O2 Delivery O2 Flow Rate FiO2 04/06/20 21:00 Room Air 04/06/20 20:00 98.6 94 18 118/80 (93) 99 04/06/20 18:34 98.6 04/06/20 16:00 98.6 86 16 95/65 (75) 99 04/06/20 12:00 96.8 72 18 103/72 (82) 100 04/06/20 12:00 81 04/06/20 09:00 Room Air 04/06/20 08:00 98.7 80 18 103/63 (76) 100 04/06/20 08:00 76 04/06/20 04:00 97.9 79 18 98/87 (91) 100 04/06/20 03:33 76 04/06/20 00:00 98.0 74 20 101/55 (70) 100 HEENT: normal ENT inspection RHYTHM: NSR, ST LUNGS: lungs clear bilaterally CARDIAC: regular rhythm, normal S1 and S2, no murmur, tachycardia ABDOMEN: soft, hepatomegaly EXTREMITIES: no calf tenderness, trace edema Laboratory Tests Test 04/06/20 05:35 04/06/20 18:55 White Blood Count 21.8 K/UL (4.8-10.8) #H Red Blood Count 3.68 M/UL (4.20-5.40) L Hemoglobin 9.3 G/DL (12.0-16.0) L Hematocrit 30.1 % (37.0-47.0) L Mean Corpuscular Volume 82 FL (80-99) Mean Corpuscular Hemoglobin 25.3 PG (27.0-31.0) L Mean Corpuscular Hemoglobin Concent 30.9 G/DL (32.0-36.0) L Red Cell Distribution Width 20.0 % (11.6-14.8) H Platelet Count 156 K/UL (150-450) Mean Platelet Volume 7.1 FL (6.5-10.1) Neutrophils (%) (Auto) % (45.0-75.0) Lymphocytes (%) (Auto) % (20.0-45.0) Monocytes (%) (Auto) % (1.0-10.0) Eosinophils (%) (Auto) % (0.0-3.0) Basophils (%) (Auto) % (0.0-2.0) Differential Total Cells Counted 100 Neutrophils % (Manual) 82 % (45-75) H Lymphocytes % (Manual) 11 % (20-45) L Monocytes % (Manual) 1 % (1-10) Eosinophils % (Manual) 1 % (0-3) Basophils % (Manual) 0 % (0-2) Band Neutrophils 5 % (0-8) Platelet Estimate Adequate Platelet Morphology Normal Hypochromasia 1+ Anisocytosis 1+ Sodium Level 137 MMOL/L (136-145) Potassium Level 4.2 MMOL/L (3.5-5.1) Chloride Level 105 MMOL/L (98-107) Carbon Dioxide Level 25 MMOL/L (21-32) Anion Gap 7 mmol/L (5-15) Blood Urea Nitrogen 7 mg/dL (7-18) Creatinine 0.6 MG/DL (0.55-1.30) Estimat Glomerular Filtration Rate > 60 mL/min (>60) Glucose Level 69 MG/DL (74-106) L Calcium Level 8.1 MG/DL (8.5-10.1) L Total Bilirubin 1.7 MG/DL (0.2-1.0) H Direct Bilirubin 1.0 MG/DL (0.0-0.3) H Aspartate Amino Transf (AST/SGOT) 69 U/L (15-37) H Alanine Aminotransferase (ALT/SGPT) 105 U/L (12-78) H Alkaline Phosphatase 443 U/L (46-116) H Total Protein 6.0 G/DL (6.4-8.2) L Albumin 2.2 G/DL (3.4-5.0) L Globulin 3.8 g/dL Albumin/Globulin Ratio 0.6 (1.0-2.7) L Thyroid Stimulating Hormone (TSH) 1.196 uiU/mL (0.358-3.740) Vancomycin Level Trough 10.4 ug/mL (5.0-12.0) Microbiology Date/Time Source Procedure Growth Status 04/05/20 07:30 Nasopharynx SARS-CoV-2 RdRp Gene Assay - Final Complete Assessment/Plan Assessment/Plan Stage 4 metastatic colon CA Possible sepsis vs chemoRx associated leukocytosis - improved Hypovolemic shock with orthostatic syncope Anemia Lactic acidosis - resolved PLAN: Abx Follow up cultures IVF Monitor lab studies James Crawford MD Apr 06, 2020 23:55
[2020-04-07] VITALS: BP 104/66
[2020-04-07 04:00] VITALS: BP 104/70
[2020-04-07] MEDS: Heparin 5000 units/ml inj SUBQ SCH ×3 (05:10→21:36)
[2020-04-07] MEDS: Piperacillin/Tazobactam 3.375 GM in NS 110 ML IVPB SCH ×3 (05:10→21:34)
[2020-04-07] MEDS: HYDROmorphone 1mg/ml Carpuject IVP PRN ×4 (05:29→23:57)
[2020-04-07 08:00] VITALS: BP 112/73
--- NOTE | 2020-04-07 08:23 | General Progress Note ---
Assessment/Plan Problem List: (1) COVID-19 ruled out ICD Codes: Z03.818 - Encounter for observation for suspected exposure to other biological agents ruled out SNOMED: 866181721, [id number] (2) Syncope ICD Codes: R55 - Syncope and collapse SNOMED: 679291011 Qualifiers: Qualified Codes: R55 - Syncope and collapse (3) Metastatic colon cancer in female ICD Codes: C18.9 - Malignant neoplasm of colon, unspecified SNOMED: 053619944, 235869910 (4) Sepsis ICD Codes: A41.9 - Sepsis, unspecified organism SNOMED: 30633957, 451625711 Qualifiers: Qualified Codes: A41.9 - Sepsis, unspecified organism; R65.20 - Severe sepsis without septic shock Status: stable Assessment/Plan: cont iv abx monitor WBC follow up cultures IVF antimetics pain rx as needed check labs tomorrow ivf dvt/stress ulcer prophylaxis Subjective ROS Limited/Unobtainable: No Constitutional: Reports: malaise, weakness HEENT: Reports: no symptoms Cardiovascular: Reports: no symptoms Respiratory: Reports: no symptoms Gastrointestinal/Abdominal: Reports: no symptoms Genitourinary: Reports: no symptoms Neurologic/Psychiatric: Reports: no symptoms Endocrine: Reports: no symptoms Hematologic/Lymphatic: Reports: anemia Allergies: Coded Allergies: MORPHINE (Verified Allergy, Unknown, 04/05/20) All Systems: reviewed and negative except above Subjective no events. w/o complaints. tolerating po. remains on iv abx. no fever or chills. no sob. Objective Last 24 Hour Vital Signs Date Time Temp Pulse Resp B/P (MAP) Pulse Ox O2 Delivery O2 Flow Rate FiO2 04/07/20 06:00 Room Air 04/07/20 04:00 98.3 81 19 104/70 (81) 100 04/07/20 00:00 98.2 90 18 104/66 (79) 99 04/06/20 21:00 Room Air 04/06/20 20:00 98.6 94 18 118/80 (93) 99 04/06/20 18:34 98.6 04/06/20 16:00 98.6 86 16 95/65 (75) 99 04/06/20 12:00 96.8 72 18 103/72 (82) 100 04/06/20 12:00 81 04/06/20 09:00 Room Air Intake and Output 04/06/20 04/07/20 19:00 07:00 Intake Total 1215.0 ml 2387.500 ml Balance 1215.0 ml 2387.500 ml Intake Oral 480 ml 600 ml IV Total 735.0 ml 1787.500 ml # Voids 2 2 # Bowel Movements 1 1 Laboratory Tests 04/06/20 18:55: Vancomycin Level Trough 10.4 Height (Feet): 5 Height (Inches): 2.00 Weight (Pounds): 111 General Appearance: WD/WN, alert Neck: supple Cardiovascular: normal rate Respiratory/Chest: chest wall non-tender, lungs clear, normal breath sounds Abdomen: normal bowel sounds, non tender, soft, no organomegaly Edema: no edema noted Arm (L), no edema noted Arm (R), no edema noted Leg (L), no edema noted Leg (R), no edema noted Pedal (L), no edema noted Pedal (R), no edema noted 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
[2020-04-07] MEDS: Vancomycin 1.25gm/NS Premix IVPB SCH ×2 (09:27→20:11)
--- NOTE | 2020-04-07 10:57 | Infectious Diseases Prog Note ---
Assessment/Plan Assessment/Plan antibiotics : vancomycin iv, zosyn A 1. cholecystitis 2. colon cancer with metastasis 3. leucocytosis improving 4. hypertension P 1. continue iv vancomycin, zosyn 2. will follow up cultures 3. suggest GI evaluation Subjective Constitutional: Denies: fever, chills Respiratory: Denies: shortness of breath, dry cough Gastrointestinal/Abdominal: Denies: nausea, vomiting, diarrhea Musculoskeletal: Reports: pain - abdominal Allergies: Coded Allergies: MORPHINE (Verified Allergy, Unknown, 04/05/20) Objective Last 24 Hour Vital Signs Date Time Temp Pulse Resp B/P (MAP) Pulse Ox O2 Delivery O2 Flow Rate FiO2 04/07/20 09:00 Room Air 04/07/20 08:00 98.0 85 18 112/73 (86) 96 04/07/20 06:00 Room Air 04/07/20 04:00 98.3 81 19 104/70 (81) 100 04/07/20 00:00 98.2 90 18 104/66 (79) 99 04/06/20 21:00 Room Air 04/06/20 20:00 98.6 94 18 118/80 (93) 99 04/06/20 18:34 98.6 04/06/20 16:00 98.6 86 16 95/65 (75) 99 04/06/20 12:00 96.8 72 18 103/72 (82) 100 04/06/20 12:00 81 Height (Feet): 5 Height (Inches): 2.00 Weight (Pounds): 111 Respiratory/Chest: lungs clear Cardiovascular: normal rate, regular rhythm, no gallop/murmur Abdomen: tender - on right side Extremities: no edema, other - right subclavian Microbiology Date/Time Source Procedure Growth Status 04/05/20 07:05 Blood Blood Culture - Preliminary NO GROWTH AFTER 24 HOURS Resulted 04/05/20 06:40 Blood Blood Culture - Preliminary NO GROWTH AFTER 24 HOURS Resulted 04/05/20 07:30 Nasopharynx SARS-CoV-2 RdRp Gene Assay - Final Complete Laboratory Tests Test 04/06/20 18:55 Vancomycin Level Trough 10.4 ug/mL (5.0-12.0) Current Medications Medications (Trade) Dose Ordered Sig/Gómez Route PRN Reason Start Time Stop Time Status Last Admin Dose Admin Acetaminophen (Tylenol) 650 mg Q4H PRN ORAL fever/pain/NAM 04/06/20 13:45 05/05/20 09:44 Chlorhexidine Gluconate ([place]-Hex 2%) 1 applic DAILY@1999 TOPIC 04/06/20 20:00 07/05/20 19:59 04/06/20 20:00 Heparin Sodium (Porcine) (Heparin 5000 units/ml) 5,000 units EVERY 8 HOURS SUBQ 04/06/20 14:00 05/20/20 13:59 04/07/20 05:10 Hydromorphone HCl (Dilaudid) 1 mg Q4H PRN IVP PAIN 4-10 04/06/20 14:00 04/12/20 17:59 04/07/20 05:29 Ondansetron HCl (Zofran) 4 mg Q4H PRN IVP Nausea & Vomiting 04/06/20 13:45 05/05/20 09:44 Piperacillin Sod/ Tazobactam Sod 3.375 gm/Sodium Chloride 110 ml @ 27.5 mls/hr EVERY 8 HOURS IVPB 04/06/20 14:00 04/12/20 13:59 04/07/20 05:10 Sodium Chloride 1,000 ml @ 125 mls/hr Q8H IV 04/06/20 13:40 05/05/20 13:39 04/07/20 05:10 Vancomycin HCl ([facility] pharmacy to dose) 1 ea DAILY PRN MISC Per rx protocol 04/06/20 14:00 05/06/20 13:59 Vancomycin/Sodium Chloride 275 ml @ 183.333 mls/hr Q12HR@08,1999 IVPB 04/06/20 21:00 04/11/20 20:59 04/07/20 09:27 Jeffrey Szymanski MD Apr 07, 2020 10:57
--- NOTE | 2020-04-07 11:31 | Diagnostic Imaging Report ---
Indication:Leg pain and swelling Technique: Grayscale and duplex Doppler imaging of the veins in both lower extremities performed in real time utilizing compression and augmentation. Comparison: None Findings: Duplex Doppler interrogation of the veins in both lower extremity is performed from the common femoral vein to the popliteal vein. Normal venous compressibility demonstrated throughout. No thrombus identified. Waveform analysis shows good respiratory phasicity and augmentation. Imaged calf veins are also patent. IMPRESSION: No evidence of deep venous thrombosis involving the lower extremities.
[2020-04-07 12:00] VITALS: BP 125/69
--- NOTE | 2020-04-07 13:16 | Cardiology Progress Note ---
Subjective DATE OF SERVICE: Apr 07, 2020 Says she feels better. No SOB. NO N/V. Some abdominal pain. Much less dizziness; able to sit upright. CT scan suggests cholecystitis Objective Last 24 Hour Vital Signs Date Time Temp Pulse Resp B/P (MAP) Pulse Ox O2 Delivery O2 Flow Rate FiO2 04/07/20 09:00 Room Air 04/07/20 08:00 98.0 85 18 112/73 (86) 96 04/07/20 06:00 Room Air 04/07/20 04:00 98.3 81 19 104/70 (81) 100 04/07/20 00:00 98.2 90 18 104/66 (79) 99 04/06/20 21:00 Room Air 04/06/20 20:00 98.6 94 18 118/80 (93) 99 04/06/20 18:34 98.6 04/06/20 16:00 98.6 86 16 95/65 (75) 99 HEENT: normal ENT inspection RHYTHM: NSR, ST LUNGS: lungs clear bilaterally, other - right subclavian line CARDIAC: regular rhythm, normal S1 and S2, no murmur, tachycardia ABDOMEN: soft, hepatomegaly EXTREMITIES: no calf tenderness, trace edema Laboratory Tests Test 04/06/20 18:55 Vancomycin Level Trough 10.4 ug/mL (5.0-12.0) Microbiology Date/Time Source Procedure Growth Status 04/05/20 07:05 Blood Blood Culture - Preliminary NO GROWTH AFTER 24 HOURS Resulted 04/05/20 06:40 Blood Blood Culture - Preliminary NO GROWTH AFTER 24 HOURS Resulted 04/05/20 07:30 Nasopharynx SARS-CoV-2 RdRp Gene Assay - Final Complete Assessment/Plan Assessment/Plan Stage 4 metastatic colon CA Possible sepsis vs chemoRx associated leukocytosis - improved Hypovolemic shock with orthostatic syncope Anemia Lactic acidosis - resolved Possible cholecystitis PLAN: Abx Follow up cultures IVF adjustments as needed Monitor lab studies GI and Surg called. James Crawford MD Apr 07, 2020 13:16
--- NOTE | 2020-04-07 14:38 | Consultation ---
History of Present Illness General Date patient seen: Apr 07, 2020 Reason for Hospitalization: Syncope Present Illness HPI This is a 49 year old female who nearly passed out when she stood up day of admission. Family were able to catch her and lay her down. She felt somewhat better when laying down. Paramedics found that she was orthostatic. She also remained tachycardic. Accu-Chek was normal in the field. She has a history of colon cancer and is receiving chemotherapy actively. She has a Port-A-Cath in her right chest. She complains about some shortness of breath today. She denies fevers or chills. She has been passing some blood in her stool but the stool is been brown in color. She denies dysuria, sore throat, productive cough or chest pain. She denies body pain at this time. Pre report, discussion with her oncologist Dr. Nunez at [facility] states that she has colon cancer with metastasis to liver brain and lung. Her bilirubin in the past prior to chemotherapy was 5. After chemotherapy is been down to the 1.3 range. She has 40% liver function at this time. She has metastasis to her lungs that also in the mediastinum and peripherally. She also has brain metastasis and has undergone radiation. Before chemotherapy the patient had ascites and this was improved after chemotherapy. At this point she is at the end stage of her illness although he is still treating her with chemotherapy. He stated that the chemotherapy might have effects of increasing her white blood cell count. Pelvic mass also. Her oncologist had a discussion with her about end-of-life treatment. She did not sign a DNR agreement with him. Patient complaining of abdominal pain since admission. Cramping generalized. Tolerating diet having bowel movements. Surgery called to evaluate assist care. Patient seen, patient [place], chart reviewed Allergies: Coded Allergies: MORPHINE (Verified Allergy, Unknown, 04/05/20) COVID-19 Screening Contact w/high risk pt: No Experienced COVID-19 symptoms?: No Medication History Scheduled PRN Ondansetron* (Zofran*), 4 MG ORAL Q6H PRN for Nausea & Vomiting, (Reported) Tramadol Hcl* (Ultram*), 50 MG ORAL Q6H PRN for For Pain, (Reported) Patient History Healthcare decision maker SELF Resuscitation status Advanced Directive on File Review of Systems Review of Symptoms General ROS: no weight loss or fever Psychological ROS: no depression or mood changes, no memory loss Ophthalmic ROS: no visual changes or eye irritation ENT ROS: no nasal congestion, hearing loss, dizziness Allergy and Immunology ROS: no allergic symptoms or urticaria Hematological and Lymphatic ROS: no swollen glands, unusual bleeding or bruising Endocrine ROS: no polyuria, polydipsia, weight changes, temperature intolerance Respiratory ROS: no cough, shortness of breath, or wheezing Cardiovascular ROS: no chest pain or dyspnea on exertion Gastrointestinal ROS: + abdominal pain, no bright red blood in stool. Musculoskeletal ROS: no myalgias or arthralgias Neurological ROS: no TIA or stroke symptoms Dermatological ROS: no new or changing skin lesions, rashes or pruritis Physical Exam Physical Exam General appearance: alert, cooperative, no distress, appears stated age Head: Normocephalic, without obvious abnormality, atraumatic Eyes: conjunctivae/corneas clear. PERRL, EOM's intact. Fundi benign Throat: Lips, mucosa, and tongue normal. Teeth and gums normal Neck: supple, symmetrical, trachea midline, no adenopathy, thyroid: not enlarged, symmetric, no tenderness/mass/nodules, no carotid bruit and no JVD right chest wall port clean dry intact usable functional Lungs: clear to auscultation bilaterally Heart: regular rate and rhythm, S1, S2 normal, no murmur, click, rub or gallop Abdomen: soft, non-tender. Bowel sounds normal. No masses, no organomegaly right upper quadrant hockey-stick incision identified from prior liver surgery wound clean dry intact midline incision identified from prior colon surgery wound clean dry intact mild discomfort on palpation no peritonitis mass distended Extremities: extremities normal, atraumatic, no cyanosis or edema Pulses: 2+ and symmetric Skin: Skin color, texture, turgor normal. No rashes or lesions Neurologic: Grossly normal Last 24 Hour Vital Signs Date Time Temp Pulse Resp B/P (MAP) Pulse Ox O2 Delivery O2 Flow Rate FiO2 04/07/20 09:00 Room Air 04/07/20 08:00 98.0 85 18 112/73 (86) 96 04/07/20 06:00 Room Air 04/07/20 04:00 98.3 81 19 104/70 (81) 100 04/07/20 00:00 98.2 90 18 104/66 (79) 99 04/06/20 21:00 Room Air 04/06/20 20:00 98.6 94 18 118/80 (93) 99 04/06/20 18:34 98.6 04/06/20 16:00 98.6 86 16 95/65 (75) 99 Intake and Output 04/06/20 04/07/20 19:00 07:00 Intake Total 1215.0 ml 2387.500 ml Balance 1215.0 ml 2387.500 ml Intake Oral 480 ml 600 ml IV Total 735.0 ml 1787.500 ml # Voids 2 2 # Bowel Movements 1 1 Laboratory Tests Test 04/06/20 18:55 Vancomycin Level Trough 10.4 ug/mL (5.0-12.0) Height (Feet): 5 Height (Inches): 2.00 Weight (Pounds): 111 Medications Current Medications Medications (Trade) Dose Ordered Sig/Gómez Route PRN Reason Start Time Stop Time Status Last Admin Dose Admin Acetaminophen (Tylenol) 650 mg Q4H PRN ORAL fever/pain/NAM 04/06/20 13:45 05/05/20 09:44 Chlorhexidine Gluconate ([place]-Hex 2%) 1 applic DAILY@2000 TOPIC 04/06/20 20:00 07/05/20 19:59 04/06/20 20:00 Heparin Sodium (Porcine) (Heparin 5000 units/ml) 5,000 units EVERY 8 HOURS SUBQ 04/06/20 14:00 05/20/20 13:59 04/07/20 13:24 Hydromorphone HCl (Dilaudid) 1 mg Q4H PRN IVP PAIN 4-10 04/06/20 14:00 04/12/20 17:59 04/07/20 11:14 Ondansetron HCl (Zofran) 4 mg Q4H PRN IVP Nausea & Vomiting 04/06/20 13:45 05/05/20 09:44 04/07/20 13:26 Piperacillin Sod/ Tazobactam Sod 3.375 gm/Sodium Chloride 110 ml @ 27.5 mls/hr EVERY 8 HOURS IVPB 04/06/20 14:00 04/12/20 13:59 04/07/20 13:26 Sodium Chloride 1,000 ml @ 125 mls/hr Q8H IV 04/06/20 13:40 05/05/20 13:39 04/07/20 13:27 Vancomycin HCl ([facility] pharmacy to dose) 1 ea DAILY PRN MISC Per rx protocol 04/06/20 14:00 05/06/20 13:59 Vancomycin/Sodium Chloride 275 ml @ 183.333 mls/hr Q12HR@0800,2000 IVPB 04/06/20 21:00 04/11/20 20:59 04/07/20 09:27 Assessment/Plan Problem List: (1) COVID-19 ruled out ICD Codes: Z03.818 - Encounter for observation for suspected exposure to other biological agents ruled out SNOMED: 743009948, 268746295 (2) Syncope ICD Codes: R55 - Syncope and collapse SNOMED: 171690040 Qualifiers: Qualified Codes: R55 - Syncope and collapse (3) Sepsis Assessment & Plan: Patient with colon cancer on chemotherapy severe leukocytosis febrile syncope. Abdominal pain. No nausea vomiting Patient is fairly immunocompromise ill-appearing is been fighting colon cancer some time now. Has a history of radiation and has received chemotherapy and is currently receiving chemotherapy. Her abdominal distention and pain is mass related she seems to have carcinomatosis. Prior melena surgeries identified. Fortunately she is nonobstructed this time. Tolerating diet having bowel movements. Would not recommend any acute surgical intervention for this time for patient. I do long discussion with patient at bedside regards to her care and care plan. Unfortunately she is not a surgical candidate at this time even if worsening condition or becomes obstructed. I had a discussion with patient regards to her care plan and goals. She specs understanding that she is been told prior she is not a surgical candidate and that she understands if complication arises difficult conversation will need to be had. Currently staying optimistic in hopes that chemotherapy will cure all her problems. Will monitor abdominal examination okay for diet for now bowel regimen ordered thank you [facility] participate in patient's care ICD Codes: A41.9 - Sepsis, unspecified organism SNOMED: 73768081, 381680993 Qualifiers: Qualified Codes: A41.9 - Sepsis, unspecified organism; R65.20 - Severe sepsis without septic shock (4) Metastatic colon cancer in female Assessment & Plan: uterus is evident. It is abnormal in appearance, with a very indistinct and possibly thickened endometrial stripe. Adjacent to the uterus, due to its right, is a large lobulated mass which measures 8 cm AP by 8.6 cm transverse. This is connected to a rounded peritoneal mass which measures 2.3 cm. There is a mass within the lesser sac just cephalad to the body of the pancreas which measures 4.7 cm. There is a mass in the wall of the ascending colon which measures approximately 4 cm AP by 2.5 cm transverse by 4.2 cm craniocaudad. More ill-defined soft tissue opacities are seen in the anterior peritoneal space and in the omentum. Innumerable low-attenuation lesions are seen scattered throughout the liver. Liver demonstrates an unusual capsular calcifications posteriorly. The gallbladder is nondistended, contains gallstones. No biliary ductal dilatation. The above described peripancreatic lesion is extrapancreatic, and the pancreas itself appears unremarkable. The spleen is upper limits of normal in size. There is a 9 mm mass within the anterior spleen. The adrenals are unremarkable., The kidneys are unremarkable. No retroperitoneal or mesenteric mass or adenopathy demonstrated. There is a circumaortic left renal vein incidentally noted. No evidence of diverticulosis or diverticulitis. The appendix is not definitely visualized, but no findings to suggest acute appendicitis are evident. No small bowel distention. Ingested contrast is seen all the way through the small bowel and most of the way through the colon. No small bowel wall thickening. No free or loculated intraperitoneal gas or fluid is evident. The distal esophagus is unremarkable. There is wall thickening of the gastric antrum and duodenal bulb. The included lung bases demonstrate multiple masses bilaterally. The bones are unremarkable. Impression: Evidence of disseminated neoplasm in patient with known history of colon carcinoma, with numerous masses in the pelvis, peritoneal space, omentum, lesser sac, liver, spleen, and visualized lung bases. There is also a mass that appears to be within the wall of the ascending colon Abnormal wall thickening of the gastric antrum and duodenal bulb. This may indicate gastritis or other inflammatory process, but could also indicate neoplastic infiltration. ICD Codes: C18.9 - Malignant neoplasm of colon, unspecified SNOMED: 804461143, 695056110 Theron Mccarthy Apr 07, 2020 14:38
[2020-04-07 16:00] VITALS: BP 112/74
[2020-04-07] MEDS: Docusate 100mg cap ORAL SCH (18:03)
[2020-04-07 20:00] VITALS: BP 112/75
[2020-04-07] MEDS: Dyna-Hex 2% Top Sol 2oz TOPIC SCH (20:11)
[2020-04-08] VITALS: BP 129/86
[2020-04-08 04:00] VITALS: BP 117/77
[2020-04-08] MEDS: Piperacillin/Tazobactam 3.375 GM in NS 110 ML IVPB SCH ×3 (05:07→22:08)
[2020-04-08] MEDS: Heparin 5000 units/ml inj SUBQ SCH ×3 (05:08→22:00)
[2020-04-08 05:55] LABS: BASOPHILS % (AUTO) 0.3 % (0.0-2.0); EOSINOPHILS % (AUTO) 0.7 % (0.0-3.0); HEMATOCRIT 30.6 % (37.0-47.0); HEMOGLOBIN 9.4 G/DL (12.0-16.0); MEAN CORPUSCULAR VOLUME 82 FL (80-99); MONOCYTES % (AUTO) 7.7 % (1.0-10.0); NEUTROPHILS % (AUTO) 84.2 % (45.0-75.0); PLATELET COUNT 148 K/UL (150-450); RED BLOOD COUNT 3.73 M/UL (4.20-5.40); RED CELL DISTRIBUTION WIDTH 19.8 % (11.6-14.8); WHITE BLOOD COUNT 14.8 K/UL (4.8-10.8)
[2020-04-08 06:20] LABS: ALANINE AMINOTRANSFERASE 74 U/L (12-78); ALBUMIN 2.4 G/DL (3.4-5.0); ALBUMIN/GLOBULIN RATIO 0.6 (1.0-2.7); ALKALINE PHOSPHATASE 452 U/L (46-116); ANION GAP 8 mmol/L (5-15); ASPARTATE AMINO TRANSFERASE 45 U/L (15-37); BILIRUBIN,TOTAL 1.3 MG/DL (0.2-1.0); BLOOD UREA NITROGEN 2 mg/dL (7-18); CARBON DIOXIDE 25 MMOL/L (21-32); CHLORIDE 105 MMOL/L (98-107); CREATININE 0.6 MG/DL (0.55-1.30); POTASSIUM 3.5 MMOL/L (3.5-5.1); SODIUM 138 MMOL/L (136-145)
[2020-04-08 06:22] LABS: BILIRUBIN,DIRECT 0.8 MG/DL (0.0-0.3)
[2020-04-08 08:00] VITALS: BP 102/66
[2020-04-08] MEDS: Vancomycin 1.25gm/NS Premix IVPB SCH (09:12)
[2020-04-08] MEDS: Docusate 100mg cap ORAL SCH ×2 (09:13→17:07)
--- NOTE | 2020-04-08 09:37 | General Progress Note ---
Assessment/Plan Problem List: (1) COVID-19 ruled out ICD Codes: Z03.818 - Encounter for observation for suspected exposure to other biological agents ruled out SNOMED: 596366409, 439584894 (2) Syncope ICD Codes: R55 - Syncope and collapse SNOMED: 816269862 Qualifiers: Qualified Codes: R55 - Syncope and collapse (3) Metastatic colon cancer in female ICD Codes: C18.9 - Malignant neoplasm of colon, unspecified SNOMED: 289658663, 362288441 (4) Sepsis ICD Codes: A41.9 - Sepsis, unspecified organism SNOMED: 21242736, 279222965 Qualifiers: Qualified Codes: A41.9 - Sepsis, unspecified organism; R65.20 - Severe sepsis without septic shock Status: stable Assessment/Plan: cont iv abx monitor WBC follow up cultures IVF antimetics pain rx as needed check labs tomorrow ivf dvt/stress ulcer prophylaxis will call GI. Subjective ROS Limited/Unobtainable: No Constitutional: Reports: no symptoms HEENT: Reports: no symptoms Cardiovascular: Reports: no symptoms Respiratory: Reports: no symptoms Gastrointestinal/Abdominal: Reports: no symptoms Genitourinary: Reports: no symptoms Neurologic/Psychiatric: Reports: no symptoms Endocrine: Reports: no symptoms Hematologic/Lymphatic: Reports: no symptoms Allergies: Coded Allergies: MORPHINE (Verified Allergy, Unknown, 04/05/20) All Systems: reviewed and negative except above Subjective no events. w/o complaints. tolerating po. remains on iv abx. no fever or chills. no sob. id noted. WBC improving. Objective Last 24 Hour Vital Signs Date Time Temp Pulse Resp B/P (MAP) Pulse Ox O2 Delivery O2 Flow Rate FiO2 04/08/20 08:00 98.4 81 19 102/66 (78) 96 04/08/20 04:00 98.5 82 19 117/77 (90) 99 04/08/20 00:00 97.9 88 18 129/86 (100) 100 04/07/20 21:00 Room Air 04/07/20 20:00 98.6 84 18 112/75 (87) 97 04/07/20 19:01 98.4 04/07/20 16:00 99.0 83 18 112/74 (87) 97 04/07/20 12:00 98.4 74 20 125/69 (87) 100 Intake and Output 04/07/20 04/08/20 19:00 07:00 Intake Total 702.5 ml 2247.500 ml Balance 702.5 ml 2247.500 ml Intake Oral 550 ml 460 ml IV Total 152.5 ml 1787.500 ml # Voids 5 2 # Bowel Movements 2 Laboratory Tests 04/08/20 05:10: White Blood Count 14.8H, Red Blood Count 3.73L, Hemoglobin 9.4L, Hematocrit 30.6L, Mean Corpuscular Volume 82, Mean Corpuscular Hemoglobin 25.1L, Mean Corpuscular Hemoglobin Concent 30.6L, Red Cell Distribution Width 19.8H, Platelet Count 148L, Mean Platelet Volume 8.4, Neutrophils (%) (Auto) 84.2H, Lymphocytes (%) (Auto) 7.0L, Monocytes (%) (Auto) 7.7, Eosinophils (%) (Auto) 0.7, Basophils (%) (Auto) 0.3, Sodium Level 138, Potassium Level 3.5, Chloride Level 105, Carbon Dioxide Level 25, Anion Gap 8, Blood Urea Nitrogen 2L, Creatinine 0.6, Estimat Glomerular Filtration Rate > 60, Glucose Level 87, Calcium Level 8.0L, Total Bilirubin 1.3H, Direct Bilirubin 0.8H, Aspartate Amino Transf (AST/SGOT) 45H, Alanine Aminotransferase (ALT/SGPT) 74, Alkaline Phosphatase 452H, Total Protein 6.3L, Albumin 2.4L, Globulin 3.9, Albumin/ Globulin Ratio 0.6L Height (Feet): 5 Height (Inches): 2.00 Weight (Pounds): 111 General Appearance: WD/WN, no apparent distress, alert EENT: normal ENT inspection, pharynx normal Neck: non-tender, normal alignment, supple, normal inspection Cardiovascular: normal peripheral pulses, normal rate, regular rhythm Respiratory/Chest: chest wall non-tender, lungs clear, normal breath sounds, no respiratory distress, no accessory muscle use Abdomen: normal bowel sounds, non tender, soft, no organomegaly, no mass Extremities: normal range of motion, non-tender Edema: no edema noted Arm (L), no edema noted Arm (R) Neurologic: soap grinder II-XII grossly normal, no motor/sensory deficits, alert, oriented x 3, responsive Skin: normal pigmentation Lymphatic: normal anterior cervical (L), normal anterior cervical (R) London Red MD Apr 08, 2020 09:37
[2020-04-08] MEDS: HYDROmorphone 1mg/ml Carpuject IVP PRN ×3 (10:14→19:52)
--- NOTE | 2020-04-08 10:43 | General Progress Note ---
Assessment/Plan Status: stable Assessment/Plan: GI Consult Dictated Assessment - Widely metastatic colon CA - Leukocytosis/sepsis on admit, ? source, possibly GB/biliary - poor surgical candidacy - would manage conservatively - cholelithiasis - possible gastritis / duodenitis per CT Recommendations - po diet as tolerated - PPI - abx - follow labs and exam - agree with non-operative management Thank you Asuncion Stapleton MD Subjective Allergies: Coded Allergies: MORPHINE (Verified Allergy, Unknown, 04/05/20) Objective Last 24 Hour Vital Signs Date Time Temp Pulse Resp B/P (MAP) Pulse Ox O2 Delivery O2 Flow Rate FiO2 04/08/20 09:00 Room Air 04/08/20 08:00 98.4 81 19 102/66 (78) 96 04/08/20 04:00 98.5 82 19 117/77 (90) 99 04/08/20 00:00 97.9 88 18 129/86 (100) 100 04/07/20 21:00 Room Air 04/07/20 20:00 98.6 84 18 112/75 (87) 97 04/07/20 19:01 98.4 04/07/20 16:00 99.0 83 18 112/74 (87) 97 04/07/20 12:00 98.4 74 20 125/69 (87) 100 Intake and Output 04/07/20 04/08/20 19:00 07:00 Intake Total 702.5 ml 2247.500 ml Balance 702.5 ml 2247.500 ml Intake Oral 550 ml 460 ml IV Total 152.5 ml 1787.500 ml # Voids 5 2 # Bowel Movements 2 Laboratory Tests 04/08/20 05:10: White Blood Count 14.8H, Red Blood Count 3.73L, Hemoglobin 9.4L, Hematocrit 30.6L, Mean Corpuscular Volume 82, Mean Corpuscular Hemoglobin 25.1L, Mean Corpuscular Hemoglobin Concent 30.6L, Red Cell Distribution Width 19.8H, Platelet Count 148L, Mean Platelet Volume 8.4, Neutrophils (%) (Auto) 84.2H, Lymphocytes (%) (Auto) 7.0L, Monocytes (%) (Auto) 7.7, Eosinophils (%) (Auto) 0.7, Basophils (%) (Auto) 0.3, Sodium Level 138, Potassium Level 3.5, Chloride Level 105, Carbon Dioxide Level 25, Anion Gap 8, Blood Urea Nitrogen 2L, Creatinine 0.6, Estimat Glomerular Filtration Rate > 60, Glucose Level 87, Calcium Level 8.0L, Total Bilirubin 1.3H, Direct Bilirubin 0.8H, Aspartate Amino Transf (AST/SGOT) 45H, Alanine Aminotransferase (ALT/SGPT) 74, Alkaline Phosphatase 452H, Total Protein 6.3L, Albumin 2.4L, Globulin 3.9, Albumin/ Globulin Ratio 0.6L Height (Feet): 5 Height (Inches): 2.00 Weight (Pounds): 111 Asuncion Stapleton MD Apr 08, 2020 10:43
--- NOTE | 2020-04-08 10:56 | Infectious Diseases Prog Note ---
Assessment/Plan Assessment/Plan antibiotics : vancomycin iv, zosyn A 1. cholecystitis, cholangitis 2. colon cancer with metastasis 3. leucocytosis improving 4. hypertension P 1. continue zosyn 2. d/c iv vancomycin 3. will follow up cultures Subjective Constitutional: Denies: fever, chills Respiratory: Denies: shortness of breath, dry cough Gastrointestinal/Abdominal: Reports: nausea; Denies: vomiting, diarrhea Musculoskeletal: Reports: pain - in abdomen Allergies: Coded Allergies: MORPHINE (Verified Allergy, Unknown, 04/05/20) Objective Last 24 Hour Vital Signs Date Time Temp Pulse Resp B/P (MAP) Pulse Ox O2 Delivery O2 Flow Rate FiO2 04/08/20 09:00 Room Air 04/08/20 08:00 98.4 81 19 102/66 (78) 96 04/08/20 04:00 98.5 82 19 117/77 (90) 99 04/08/20 00:00 97.9 88 18 129/86 (100) 100 04/07/20 21:00 Room Air 04/07/20 20:00 98.6 84 18 112/75 (87) 97 04/07/20 19:01 98.4 04/07/20 16:00 99.0 83 18 112/74 (87) 97 04/07/20 12:00 98.4 74 20 125/69 (87) 100 Height (Feet): 5 Height (Inches): 2.00 Weight (Pounds): 111 Respiratory/Chest: lungs clear Cardiovascular: normal rate, regular rhythm, no gallop/murmur Abdomen: tender - on right Extremities: no edema Laboratory Tests Test 04/08/20 05:10 White Blood Count 14.8 K/UL (4.8-10.8) H Red Blood Count 3.73 M/UL (4.20-5.40) L Hemoglobin 9.4 G/DL (12.0-16.0) L Hematocrit 30.6 % (37.0-47.0) L Mean Corpuscular Volume 82 FL (80-99) Mean Corpuscular Hemoglobin 25.1 PG (27.0-31.0) L Mean Corpuscular Hemoglobin Concent 30.6 G/DL (32.0-36.0) L Red Cell Distribution Width 19.8 % (11.6-14.8) H Platelet Count 148 K/UL (150-450) L Mean Platelet Volume 8.4 FL (6.5-10.1) Neutrophils (%) (Auto) 84.2 % (45.0-75.0) H Lymphocytes (%) (Auto) 7.0 % (20.0-45.0) L Monocytes (%) (Auto) 7.7 % (1.0-10.0) Eosinophils (%) (Auto) 0.7 % (0.0-3.0) Basophils (%) (Auto) 0.3 % (0.0-2.0) Sodium Level 138 MMOL/L (136-145) Potassium Level 3.5 MMOL/L (3.5-5.1) Chloride Level 105 MMOL/L (98-107) Carbon Dioxide Level 25 MMOL/L (21-32) Anion Gap 8 mmol/L (5-15) Blood Urea Nitrogen 2 mg/dL (7-18) L Creatinine 0.6 MG/DL (0.55-1.30) Estimat Glomerular Filtration Rate > 60 mL/min (>60) Glucose Level 87 MG/DL (74-106) Calcium Level 8.0 MG/DL (8.5-10.1) L Total Bilirubin 1.3 MG/DL (0.2-1.0) H Direct Bilirubin 0.8 MG/DL (0.0-0.3) H Aspartate Amino Transf (AST/SGOT) 45 U/L (15-37) H Alanine Aminotransferase (ALT/SGPT) 74 U/L (12-78) Alkaline Phosphatase 452 U/L (46-116) H Total Protein 6.3 G/DL (6.4-8.2) L Albumin 2.4 G/DL (3.4-5.0) L Globulin 3.9 g/dL Albumin/Globulin Ratio 0.6 (1.0-2.7) L Current Medications Medications (Trade) Dose Ordered Sig/Gómez Route PRN Reason Start Time Stop Time Status Last Admin Dose Admin Acetaminophen (Tylenol) 650 mg Q4H PRN ORAL fever/pain/NAM 04/06/20 13:45 05/05/20 09:44 Chlorhexidine Gluconate ([place]-Hex 2%) 1 applic DAILY@1999 TOPIC 04/06/20 20:00 07/05/20 19:59 04/07/20 20:11 Docusate Sodium (Colace) 100 mg TWICE A DAY ORAL 04/07/20 18:00 05/07/20 17:59 04/08/20 09:13 Heparin Sodium (Porcine) (Heparin 5000 units/ml) 5,000 units EVERY 8 HOURS SUBQ 04/06/20 14:00 05/20/20 13:59 04/08/20 05:08 Hydromorphone HCl (Dilaudid) 1 mg Q4H PRN IVP PAIN 4-10 04/06/20 14:00 04/12/20 17:59 04/08/20 10:14 Ondansetron HCl (Zofran) 4 mg Q4H PRN IVP Nausea & Vomiting 04/06/20 13:45 05/05/20 09:44 04/07/20 13:26 Pantoprazole (Protonix) 40 mg DAILY IVP 04/08/20 13:00 05/08/20 12:59 Piperacillin Sod/ Tazobactam Sod 3.375 gm/Sodium Chloride 110 ml @ 27.5 mls/hr EVERY 8 HOURS IVPB 04/06/20 14:00 04/12/20 13:59 04/08/20 05:07 Potassium Chloride (K-Dur) 40 meq ONCE ORAL 04/08/20 09:45 04/08/20 11:00 04/08/20 10:10 Sodium Chloride 1,000 ml @ 125 mls/hr Q8H IV 04/06/20 13:40 05/05/20 13:39 04/08/20 03:04 Vancomycin HCl ([facility] pharmacy to dose) 1 ea DAILY PRN MISC Per rx protocol 04/06/20 14:00 05/06/20 13:59 Vancomycin/Sodium Chloride 275 ml @ 183.333 mls/hr Q12HR@0800,2000 IVPB 04/06/20 21:00 04/11/20 20:59 04/08/20 09:12 Jeffrey Szymanski MD Apr 08, 2020 10:56
[2020-04-08 12:00] VITALS: BP 122/74
[2020-04-08] MEDS: Pantoprazole Inj IVP SCH (12:21)
[2020-04-08 16:00] VITALS: BP 120/60
--- NOTE | 2020-04-08 16:04 | Surgery Progress Note ---
Surgery Progress Note Subjective Symptoms: improved, tolerating diet, voiding well, passing flatus, BM Objective Last 24 Hour Vital Signs Date Time Temp Pulse Resp B/P (MAP) Pulse Ox O2 Delivery O2 Flow Rate FiO2 04/08/20 12:00 98.8 92 16 122/74 (90) 98 04/08/20 10:44 98.4 04/08/20 09:00 Room Air 04/08/20 08:00 98.4 81 19 102/66 (78) 96 04/08/20 04:00 98.5 82 19 117/77 (90) 99 04/08/20 00:00 97.9 88 18 129/86 (100) 100 04/07/20 21:00 Room Air 04/07/20 20:00 98.6 84 18 112/75 (87) 97 I&O Intake and Output 04/07/20 04/08/20 19:00 07:00 Intake Total 702.5 ml 2247.500 ml Balance 702.5 ml 2247.500 ml Intake Oral 550 ml 460 ml IV Total 152.5 ml 1787.500 ml # Voids 5 2 # Bowel Movements 2 Cardiovascular: RSR Respiratory: clear Abdomen: soft, non-tender, present bowel sounds Extremities: no edema, no tenderness, no cyanosis Laboratory Tests Test 04/08/20 05:10 White Blood Count 14.8 K/UL (4.8-10.8) H Red Blood Count 3.73 M/UL (4.20-5.40) L Hemoglobin 9.4 G/DL (12.0-16.0) L Hematocrit 30.6 % (37.0-47.0) L Mean Corpuscular Volume 82 FL (80-99) Mean Corpuscular Hemoglobin 25.1 PG (27.0-31.0) L Mean Corpuscular Hemoglobin Concent 30.6 G/DL (32.0-36.0) L Red Cell Distribution Width 19.8 % (11.6-14.8) H Platelet Count 148 K/UL (150-450) L Mean Platelet Volume 8.4 FL (6.5-10.1) Neutrophils (%) (Auto) 84.2 % (45.0-75.0) H Lymphocytes (%) (Auto) 7.0 % (20.0-45.0) L Monocytes (%) (Auto) 7.7 % (1.0-10.0) Eosinophils (%) (Auto) 0.7 % (0.0-3.0) Basophils (%) (Auto) 0.3 % (0.0-2.0) Sodium Level 138 MMOL/L (136-145) Potassium Level 3.5 MMOL/L (3.5-5.1) Chloride Level 105 MMOL/L (98-107) Carbon Dioxide Level 25 MMOL/L (21-32) Anion Gap 8 mmol/L (5-15) Blood Urea Nitrogen 2 mg/dL (7-18) L Creatinine 0.6 MG/DL (0.55-1.30) Estimat Glomerular Filtration Rate > 60 mL/min (>60) Glucose Level 87 MG/DL (74-106) Calcium Level 8.0 MG/DL (8.5-10.1) L Total Bilirubin 1.3 MG/DL (0.2-1.0) H Direct Bilirubin 0.8 MG/DL (0.0-0.3) H Aspartate Amino Transf (AST/SGOT) 45 U/L (15-37) H Alanine Aminotransferase (ALT/SGPT) 74 U/L (12-78) Alkaline Phosphatase 452 U/L (46-116) H Total Protein 6.3 G/DL (6.4-8.2) L Albumin 2.4 G/DL (3.4-5.0) L Globulin 3.9 g/dL Albumin/Globulin Ratio 0.6 (1.0-2.7) L Plan Problems: (1) COVID-19 ruled out (2) Syncope (3) Sepsis Assessment & Plan: Patient with colon cancer on chemotherapy severe leukocytosis febrile syncope. Abdominal pain. No nausea vomiting Patient is fairly immunocompromise ill-appearing is been fighting colon cancer some time now. Has a history of radiation and has received chemotherapy and is currently receiving chemotherapy. Her abdominal distention and pain is mass related she seems to have carcinomatosis. Prior melena surgeries identified. Fortunately she is nonobstructed this time. Tolerating diet having bowel movements. Would not recommend any acute surgical intervention for this time for patient. I do long discussion with patient at bedside regards to her care and care plan. Unfortunately she is not a surgical candidate at this time even if worsening condition or becomes obstructed. I had a discussion with patient regards to her care plan and goals. She specs understanding that she is been told prior she is not a surgical candidate and that she understands if complication arises difficult conversation will need to be had. Currently staying optimistic in hopes that chemotherapy will cure all her problems. Will monitor abdominal examination okay for diet for now bowel regimen ordered thank you [facility] participate in patient's care (4) Metastatic colon cancer in female Assessment & Plan: uterus is evident. It is abnormal in appearance, with a very indistinct and possibly thickened endometrial stripe. Adjacent to the uterus, due to its right, is a large lobulated mass which measures 8 cm AP by 8.6 cm transverse. This is connected to a rounded peritoneal mass which measures 2.3 cm. There is a mass within the lesser sac just cephalad to the body of the pancreas which measures 4.7 cm. There is a mass in the wall of the ascending colon which measures approximately 4 cm AP by 2.5 cm transverse by 4.2 cm craniocaudad. More ill-defined soft tissue opacities are seen in the anterior peritoneal space and in the omentum. Innumerable low-attenuation lesions are seen scattered throughout the liver. Liver demonstrates an unusual capsular calcifications posteriorly. The gallbladder is nondistended, contains gallstones. No biliary ductal dilatation. The above described peripancreatic lesion is extrapancreatic, and the pancreas itself appears unremarkable. The spleen is upper limits of normal in size. There is a 9 mm mass within the anterior spleen. The adrenals are unremarkable., The kidneys are unremarkable. No retroperitoneal or mesenteric mass or adenopathy demonstrated. There is a circumaortic left renal vein incidentally noted. No evidence of diverticulosis or diverticulitis. The appendix is not definitely visualized, but no findings to suggest acute appendicitis are evident. No small bowel distention. Ingested contrast is seen all the way through the small bowel and most of the way through the colon. No small bowel wall thickening. No free or loculated intraperitoneal gas or fluid is evident. The distal esophagus is unremarkable. There is wall thickening of the gastric antrum and duodenal bulb. The included lung bases demonstrate multiple masses bilaterally. The bones are unremarkable. Impression: Evidence of disseminated neoplasm in patient with known history of colon carcinoma, with numerous masses in the pelvis, peritoneal space, omentum, lesser sac, liver, spleen, and visualized lung bases. There is also a mass that appears to be within the wall of the ascending colon Abnormal wall thickening of the gastric antrum and duodenal bulb. This may indicate gastritis or other inflammatory process, but could also indicate neoplastic infiltration. Theron Mccarthy Apr 08, 2020 16:03
--- NOTE | 2020-04-08 18:00 | Consultation ---
DATE OF CONSULTATION: 04/08/2020 GASTROENTEROLOGY CONSULTATION CONSULTING PHYSICIAN: Asuncion Stapleton MD REFERRING PHYSICIAN: James Crawford MD CHIEF COMPLAINT: I was asked to see this patient by Dr. James Crawford for evaluation of metastatic colon cancer. HISTORY OF PRESENT ILLNESS: The patient is a pleasant 49-year-old woman with a history of colon cancer going back to 2016. She has apparently metastatic disease and is followed by an oncologist in the [facility] ([place]) and receiving chemotherapy. She gets regular CT scans at intervals, but she has not had a colonoscopy for about 3 years. She has decreased appetite, but overall has relatively minimal gastrointestinal symptomatology. Notably, she denies any abdominal pain, nausea, or vomiting on a day-to-day basis, although there is some occasional nausea. She does have some intermittent bouts of hematochezia. She has been treated conservatively other than chemotherapy, since she has been doing relatively well. She came to the emergency room feeling dizzy. Her last therapy was a year ago and she is also receiving chemotherapy. The ultrasound in the emergency room showed some gallbladder wall thickening, but the CT scan showed widely metastatic colon cancer with masses in various parts of the abdomen. PAST MEDICAL HISTORY: History of hypertension, metastatic colon cancer. ALLERGIES: None. FAMILY HISTORY: Noncontributory. SOCIAL HISTORY: The patient does not smoke or drink alcohol. MEDICATIONS: See the chart list for details. PHYSICAL EXAMINATION: GENERAL: A pleasant, thin woman in no distress. HEENT: Normocephalic and atraumatic. NECK: Supple. CHEST: Clear to auscultation. CARDIOVASCULAR: Regular rate. ABDOMEN: Soft, but diffusely tender to palpation, without guarding or rebound. EXTREMITIES: Revealed no edema. LABORATORY DATA: Noted. ASSESSMENT: This patient has widely metastatic colon cancer. She came to the hospital with markedly elevated white count, but this is rapidly declining with antibiotics. She is tolerating her oral diet and she is a poor candidate for any aggressive or invasive intervention. Given that she has responded to antibiotic therapy, I would continue the same. Her CT imaging shows evidence of disseminated neoplasm in the abdomen with numerous masses in the pelvis, peritoneal space, and various other locations. The primary tumor appears to be in the wall of the colon. Some degree of possible gastritis in the antrum and duodenal bulb. She has been treated with acid suppression. The gallbladder appears to have some gallstones, but is nondistended. Even though the ultrasound commented on the gallbladder wall thickening, I would err on side of conservative management since the patient is a poor surgical candidate. RECOMMENDATIONS: 1. Continue antibiotics. 2. Oral intake as tolerated. 3. Follow laboratory parameters and exam. 4. Surgical followup. 5. Conservative management. Thank you for allowing me to participate in the care of this patient. Asuncion Stapleton M.D. DR: Eva JOB#: [id number] CC:
[2020-04-08] MEDS: Dyna-Hex 2% Top Sol 2oz TOPIC SCH (19:52)
[2020-04-08 20:00] VITALS: BP 111/72
[2020-04-09] VITALS: BP 105/64
[2020-04-09 04:00] VITALS: BP 110/71
[2020-04-09] MEDS: Heparin 5000 units/ml inj SUBQ SCH ×3 (05:02→21:36)
[2020-04-09] MEDS: Piperacillin/Tazobactam 3.375 GM in NS 110 ML IVPB SCH ×3 (05:02→21:35)
[2020-04-09 06:37] LABS: BASOPHILS % (AUTO) 1.1 % (0.0-2.0); EOSINOPHILS % (AUTO) 0.7 % (0.0-3.0); HEMATOCRIT 27.3 % (37.0-47.0); HEMOGLOBIN 8.5 G/DL (12.0-16.0); LYMPHOCYTES % (AUTO) 8.8 % (20.0-45.0); MEAN CORPUSCULAR VOLUME 82 FL (80-99); MONOCYTES % (AUTO) 12.3 % (1.0-10.0); NEUTROPHILS % (AUTO) 77.1 % (45.0-75.0); PLATELET COUNT 126 K/UL (150-450); RED BLOOD COUNT 3.34 M/UL (4.20-5.40); WHITE BLOOD COUNT 9.7 K/UL (4.8-10.8)
[2020-04-09 06:50] LABS: ALANINE AMINOTRANSFERASE 56 U/L (12-78); ALBUMIN/GLOBULIN RATIO 0.6 (1.0-2.7); ALKALINE PHOSPHATASE 384 U/L (46-116); ANION GAP 8 mmol/L (5-15); ASPARTATE AMINO TRANSFERASE 39 U/L (15-37); BILIRUBIN,TOTAL 0.9 MG/DL (0.2-1.0); BLOOD UREA NITROGEN 1 mg/dL (7-18); CALCIUM 7.9 MG/DL (8.5-10.1); CARBON DIOXIDE 27 MMOL/L (21-32); CHLORIDE 107 MMOL/L (98-107); CREATININE 0.5 MG/DL (0.55-1.30); POTASSIUM 2.9 MMOL/L (3.5-5.1); SODIUM 141 MMOL/L (136-145)
--- NOTE | 2020-04-09 07:47 | General Progress Note ---
Assessment/Plan Problem List: (1) COVID-19 ruled out ICD Codes: Z03.818 - Encounter for observation for suspected exposure to other biological agents ruled out SNOMED: 824524136, [id number] (2) Syncope ICD Codes: R55 - Syncope and collapse SNOMED: 590070831 Qualifiers: Qualified Codes: R55 - Syncope and collapse (3) Metastatic colon cancer in female ICD Codes: C18.9 - Malignant neoplasm of colon, unspecified SNOMED: 485422262, 285088536 (4) Sepsis ICD Codes: A41.9 - Sepsis, unspecified organism SNOMED: 33848762, 969795001 Qualifiers: Qualified Codes: A41.9 - Sepsis, unspecified organism; R65.20 - Severe sepsis without septic shock Status: stable Assessment/Plan: cont iv abx monitor WBC follow up cultures IVF antimetics pain rx as needed dvt/stress ulcer prophylaxis replace k Subjective ROS Limited/Unobtainable: No Constitutional: Reports: malaise, weakness HEENT: Reports: no symptoms Cardiovascular: Reports: no symptoms Respiratory: Reports: no symptoms Gastrointestinal/Abdominal: Reports: no symptoms Genitourinary: Reports: no symptoms Neurologic/Psychiatric: Reports: no symptoms Endocrine: Reports: no symptoms Hematologic/Lymphatic: Reports: no symptoms Allergies: Coded Allergies: MORPHINE (Verified Allergy, Unknown, 04/05/20) All Systems: reviewed and negative except above Subjective no events. w/o complaints. tolerating po. remains on iv abx. no fever or chills. no sob. id noted. WBC improving. overall feels better. wondering when she can go home. all noted. Objective Last 24 Hour Vital Signs Date Time Temp Pulse Resp B/P (MAP) Pulse Ox O2 Delivery O2 Flow Rate FiO2 04/09/20 04:00 98.7 87 18 110/71 (84) 97 04/09/20 00:00 99.2 89 18 105/64 (78) 97 04/08/20 21:00 Room Air 04/08/20 20:22 98.8 04/08/20 20:00 98.8 94 18 111/72 (85) 100 04/08/20 16:00 98.6 85 18 120/60 (80) 100 04/08/20 12:00 98.8 92 16 122/74 (90) 98 04/08/20 09:00 Room Air 04/08/20 08:00 98.4 81 19 102/66 (78) 96 Intake and Output 04/08/20 04/09/20 19:00 07:00 Intake Total 902.5 ml 480 ml Balance 902.5 ml 480 ml Intake Oral 750 ml 480 ml IV Total 152.5 ml # Voids 4 3 # Bowel Movements 1 Laboratory Tests 04/09/20 05:05: White Blood Count 9.7, Red Blood Count 3.34L, Hemoglobin 8.5L, Hematocrit 27.3L , Mean Corpuscular Volume 82, Mean Corpuscular Hemoglobin 25.5L, Mean Corpuscular Hemoglobin Concent 31.2L, Red Cell Distribution Width 20.0H, Platelet Count 126L, Mean Platelet Volume 7.2, Neutrophils (%) (Auto) 77.1H, Lymphocytes (%) (Auto) 8.8L, Monocytes (%) (Auto) 12.3H, Eosinophils (%) (Auto) 0.7, Basophils (%) (Auto) 1.1, Sodium Level 141, Potassium Level 2.9L, Chloride Level 107, Carbon Dioxide Level 27, Anion Gap 8, Blood Urea Nitrogen 1L, Creatinine 0.5L, Estimat Glomerular Filtration Rate > 60, Glucose Level 95, Calcium Level 7.9L, Total Bilirubin 0.9, Aspartate Amino Transf (AST/SGOT) 39H, Alanine Aminotransferase (ALT/SGPT) 56, Alkaline Phosphatase 384H, Total Protein 5.4L, Albumin 2.0L, Globulin 3.4, Albumin/Globulin Ratio 0.6L Height (Feet): 5 Height (Inches): 2.00 Weight (Pounds): 111 Objective General Appearance: WD/WN, no apparent distress, alert EENT: normal ENT inspection, pharynx normal Neck: non-tender, normal alignment, supple, normal inspection Cardiovascular: normal peripheral pulses, normal rate, regular rhythm Respiratory/Chest: chest wall non-tender, lungs clear, normal breath sounds, no respiratory distress, no accessory muscle use Abdomen: normal bowel sounds, non tender, soft, no organomegaly, no mass Extremities: normal range of motion, non-tender Edema: no edema noted Arm (L), no edema noted Arm (R) 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
[2020-04-09 08:00] VITALS: BP 111/78
[2020-04-09] MEDS: Pantoprazole Inj IVP SCH (08:58)
[2020-04-09] MEDS: Docusate 100mg cap ORAL SCH ×2 (08:58→17:33)
[2020-04-09] MEDS: HYDROmorphone 1mg/ml Carpuject IVP PRN ×3 (08:59→19:35)
[2020-04-09 12:00] VITALS: BP 124/79
--- NOTE | 2020-04-09 12:38 | Infectious Diseases Prog Note ---
Assessment/Plan Assessment/Plan A; 1. Cholecystitis. 2. Leukocytosis improving 3. Hypertension. 4. Colon cancer with metastases 5. Anemia PLAN: 1. Continue IV Zosyn. 2. We will follow up cultures. Subjective ROS Limited/Unobtainable: No Constitutional: Denies: fever Respiratory: Reports: no symptoms Cardiovascular: Reports: no symptoms Gastrointestinal/Abdominal: Reports: nausea, other - lower abdominal pain Genitourinary: Reports: no symptoms Allergies: Coded Allergies: MORPHINE (Verified Allergy, Unknown, 04/05/20) Objective Last 24 Hour Vital Signs Date Time Temp Pulse Resp B/P (MAP) Pulse Ox O2 Delivery O2 Flow Rate FiO2 04/09/20 09:29 98.7 04/09/20 09:00 Room Air 04/09/20 08:00 98.6 89 18 111/78 (89) 98 04/09/20 04:00 98.7 87 18 110/71 (84) 97 04/09/20 00:00 99.2 89 18 105/64 (78) 97 04/08/20 21:00 Room Air 04/08/20 20:00 98.8 94 18 111/72 (85) 100 04/08/20 16:00 98.6 85 18 120/60 (80) 100 Height (Feet): 5 Height (Inches): 2.00 Weight (Pounds): 111 General Appearance: no acute distress HEENT: mucous membranes moist Respiratory/Chest: lungs clear Cardiovascular: normal rate, other - Portacath Abdomen: other - tender in lower quadrants Neurologic/Psychiatric: alert, oriented x 3, responsive Laboratory Tests Test 04/09/20 05:05 White Blood Count 9.7 K/UL (4.8-10.8) Red Blood Count 3.34 M/UL (4.20-5.40) L Hemoglobin 8.5 G/DL (12.0-16.0) L Hematocrit 27.3 % (37.0-47.0) L Mean Corpuscular Volume 82 FL (80-99) Mean Corpuscular Hemoglobin 25.5 PG (27.0-31.0) L Mean Corpuscular Hemoglobin Concent 31.2 G/DL (32.0-36.0) L Red Cell Distribution Width 20.0 % (11.6-14.8) H Platelet Count 126 K/UL (150-450) L Mean Platelet Volume 7.2 FL (6.5-10.1) Neutrophils (%) (Auto) 77.1 % (45.0-75.0) H Lymphocytes (%) (Auto) 8.8 % (20.0-45.0) L Monocytes (%) (Auto) 12.3 % (1.0-10.0) H Eosinophils (%) (Auto) 0.7 % (0.0-3.0) Basophils (%) (Auto) 1.1 % (0.0-2.0) Sodium Level 141 MMOL/L (136-145) Potassium Level 2.9 MMOL/L (3.5-5.1) L Chloride Level 107 MMOL/L (98-107) Carbon Dioxide Level 27 MMOL/L (21-32) Anion Gap 8 mmol/L (5-15) Blood Urea Nitrogen 1 mg/dL (7-18) L Creatinine 0.5 MG/DL (0.55-1.30) L Estimat Glomerular Filtration Rate > 60 mL/min (>60) Glucose Level 95 MG/DL (74-106) Calcium Level 7.9 MG/DL (8.5-10.1) L Total Bilirubin 0.9 MG/DL (0.2-1.0) Aspartate Amino Transf (AST/SGOT) 39 U/L (15-37) H Alanine Aminotransferase (ALT/SGPT) 56 U/L (12-78) Alkaline Phosphatase 384 U/L (46-116) H Total Protein 5.4 G/DL (6.4-8.2) L Albumin 2.0 G/DL (3.4-5.0) L Globulin 3.4 g/dL Albumin/Globulin Ratio 0.6 (1.0-2.7) L Current Medications Medications (Trade) Dose Ordered Sig/Gómez Route PRN Reason Start Time Stop Time Status Last Admin Dose Admin Acetaminophen (Tylenol) 650 mg Q4H PRN ORAL fever/pain/NAM 04/06/20 13:45 05/05/20 09:44 Chlorhexidine Gluconate ([place]-Hex 2%) 1 applic DAILY@1999 TOPIC 04/06/20 20:00 07/05/20 19:59 04/08/20 19:52 Docusate Sodium (Colace) 100 mg TWICE A DAY ORAL 04/07/20 18:00 05/07/20 17:59 04/09/20 08:58 Heparin Sodium (Porcine) (Heparin 5000 units/ml) 5,000 units EVERY 8 HOURS SUBQ 04/06/20 14:00 05/20/20 13:59 04/08/20 05:08 Hydromorphone HCl (Dilaudid) 1 mg Q4H PRN IVP PAIN 4-10 04/06/20 14:00 04/12/20 17:59 04/09/20 08:59 Ondansetron HCl (Zofran) 4 mg Q4H PRN IVP Nausea & Vomiting 04/06/20 13:45 05/05/20 09:44 04/08/20 19:52 Pantoprazole (Protonix) 40 mg DAILY IVP 04/08/20 13:00 05/08/20 12:59 04/09/20 08:58 Piperacillin Sod/ Tazobactam Sod 3.375 gm/Sodium Chloride 110 ml @ 27.5 mls/hr EVERY 8 HOURS IVPB 04/06/20 14:00 04/12/20 13:59 04/09/20 05:02 Potassium Chloride (K-Dur) 40 meq TWICE A DAY ORAL 04/09/20 09:00 04/10/20 02:00 04/09/20 08:59 Sodium Chloride 1,000 ml @ 125 mls/hr Q8H IV 04/06/20 13:40 05/05/20 13:39 04/09/20 05:02 Chance Monaco MD Apr 09, 2020 12:38
--- NOTE | 2020-04-09 14:05 | Surgery Progress Note ---
Surgery Progress Note Subjective Symptoms: improved, tolerating diet, passing flatus, BM, pain decreased Objective Last 24 Hour Vital Signs Date Time Temp Pulse Resp B/P (MAP) Pulse Ox O2 Delivery O2 Flow Rate FiO2 04/09/20 13:38 98.2 04/09/20 12:00 98.2 90 18 124/79 (94) 100 04/09/20 09:00 Room Air 04/09/20 08:00 98.6 89 18 111/78 (89) 98 04/09/20 04:00 98.7 87 18 110/71 (84) 97 04/09/20 00:00 99.2 89 18 105/64 (78) 97 04/08/20 21:00 Room Air 04/08/20 20:00 98.8 94 18 111/72 (85) 100 04/08/20 16:00 98.6 85 18 120/60 (80) 100 I&O Intake and Output 04/08/20 04/09/20 19:00 07:00 Intake Total 902.5 ml 480 ml Balance 902.5 ml 480 ml Intake Oral 750 ml 480 ml IV Total 152.5 ml # Voids 4 3 # Bowel Movements 1 Cardiovascular: RSR Respiratory: clear Abdomen: soft, non-tender, present bowel sounds, other Extremities: no tenderness, no cyanosis Laboratory Tests Test 04/09/20 05:05 White Blood Count 9.7 K/UL (4.8-10.8) Red Blood Count 3.34 M/UL (4.20-5.40) L Hemoglobin 8.5 G/DL (12.0-16.0) L Hematocrit 27.3 % (37.0-47.0) L Mean Corpuscular Volume 82 FL (80-99) Mean Corpuscular Hemoglobin 25.5 PG (27.0-31.0) L Mean Corpuscular Hemoglobin Concent 31.2 G/DL (32.0-36.0) L Red Cell Distribution Width 20.0 % (11.6-14.8) H Platelet Count 126 K/UL (150-450) L Mean Platelet Volume 7.2 FL (6.5-10.1) Neutrophils (%) (Auto) 77.1 % (45.0-75.0) H Lymphocytes (%) (Auto) 8.8 % (20.0-45.0) L Monocytes (%) (Auto) 12.3 % (1.0-10.0) H Eosinophils (%) (Auto) 0.7 % (0.0-3.0) Basophils (%) (Auto) 1.1 % (0.0-2.0) Sodium Level 141 MMOL/L (136-145) Potassium Level 2.9 MMOL/L (3.5-5.1) L Chloride Level 107 MMOL/L (98-107) Carbon Dioxide Level 27 MMOL/L (21-32) Anion Gap 8 mmol/L (5-15) Blood Urea Nitrogen 1 mg/dL (7-18) L Creatinine 0.5 MG/DL (0.55-1.30) L Estimat Glomerular Filtration Rate > 60 mL/min (>60) Glucose Level 95 MG/DL (74-106) Calcium Level 7.9 MG/DL (8.5-10.1) L Total Bilirubin 0.9 MG/DL (0.2-1.0) Aspartate Amino Transf (AST/SGOT) 39 U/L (15-37) H Alanine Aminotransferase (ALT/SGPT) 56 U/L (12-78) Alkaline Phosphatase 384 U/L (46-116) H Total Protein 5.4 G/DL (6.4-8.2) L Albumin 2.0 G/DL (3.4-5.0) L Globulin 3.4 g/dL Albumin/Globulin Ratio 0.6 (1.0-2.7) L Plan Problems: (1) COVID-19 ruled out (2) Syncope (3) Sepsis Assessment & Plan: Patient with colon cancer on chemotherapy severe leukocytosis febrile syncope. Abdominal pain. No nausea vomiting Patient is fairly immunocompromise ill-appearing is been fighting colon cancer some time now. Has a history of radiation and has received chemotherapy and is currently receiving chemotherapy. Her abdominal distention and pain is mass related she seems to have carcinomatosis. Prior melena surgeries identified. Fortunately she is nonobstructed this time. Tolerating diet having bowel movements. Would not recommend any acute surgical intervention for this time for patient. I do long discussion with patient at bedside regards to her care and care plan. Unfortunately she is not a surgical candidate at this time even if worsening condition or becomes obstructed. I had a discussion with patient regards to her care plan and goals. She specs understanding that she is been told prior she is not a surgical candidate and that she understands if complication arises difficult conversation will need to be had. Currently staying optimistic in hopes that chemotherapy will cure all her problems. Will monitor abdominal examination okay for diet for now bowel regimen ordered thank you [facility] participate in patient's care (4) Metastatic colon cancer in female Assessment & Plan: uterus is evident. It is abnormal in appearance, with a very indistinct and possibly thickened endometrial stripe. Adjacent to the uterus, due to its right, is a large lobulated mass which measures 8 cm AP by 8.6 cm transverse. This is connected to a rounded peritoneal mass which measures 2.3 cm. There is a mass within the lesser sac just cephalad to the body of the pancreas which measures 4.7 cm. There is a mass in the wall of the ascending colon which measures approximately 4 cm AP by 2.5 cm transverse by 4.2 cm craniocaudad. More ill-defined soft tissue opacities are seen in the anterior peritoneal space and in the omentum. Innumerable low-attenuation lesions are seen scattered throughout the liver. Liver demonstrates an unusual capsular calcifications posteriorly. The gallbladder is nondistended, contains gallstones. No biliary ductal dilatation. The above described peripancreatic lesion is extrapancreatic, and the pancreas itself appears unremarkable. The spleen is upper limits of normal in size. There is a 9 mm mass within the anterior spleen. The adrenals are unremarkable., The kidneys are unremarkable. No retroperitoneal or mesenteric mass or adenopathy demonstrated. There is a circumaortic left renal vein incidentally noted. No evidence of diverticulosis or diverticulitis. The appendix is not definitely visualized, but no findings to suggest acute appendicitis are evident. No small bowel distention. Ingested contrast is seen all the way through the small bowel and most of the way through the colon. No small bowel wall thickening. No free or loculated intraperitoneal gas or fluid is evident. The distal esophagus is unremarkable. There is wall thickening of the gastric antrum and duodenal bulb. The included lung bases demonstrate multiple masses bilaterally. The bones are unremarkable. Impression: Evidence of disseminated neoplasm in patient with known history of colon carcinoma, with numerous masses in the pelvis, peritoneal space, omentum, lesser sac, liver, spleen, and visualized lung bases. There is also a mass that appears to be within the wall of the ascending colon Abnormal wall thickening of the gastric antrum and duodenal bulb. This may indicate gastritis or other inflammatory process, but could also indicate neoplastic infiltration. Theron Mccarthy Apr 09, 2020 14:05
[2020-04-09 16:00] VITALS: BP 111/78
--- NOTE | 2020-04-09 16:11 | General Progress Note ---
Assessment/Plan Status: stable Assessment/Plan: Assessment - Widely metastatic colon CA - Leukocytosis/sepsis on admit - resolved - abnormal LFT - resolving - poor surgical candidacy - would manage conservatively - cholelithiasis - possible gastritis / duodenitis per CT Recommendations - po diet as tolerated - PPI - abx - follow labs and exam - agree with non-operative management Subjective Allergies: Coded Allergies: MORPHINE (Verified Allergy, Unknown, 04/05/20) Subjective Feels OK tolerating PO (+) BM - brown - with small streak of blood around it Objective Last 24 Hour Vital Signs Date Time Temp Pulse Resp B/P (MAP) Pulse Ox O2 Delivery O2 Flow Rate FiO2 04/09/20 13:38 98.2 04/09/20 12:00 98.2 90 18 124/79 (94) 100 04/09/20 09:00 Room Air 04/09/20 08:00 98.6 89 18 111/78 (89) 98 04/09/20 04:00 98.7 87 18 110/71 (84) 97 04/09/20 00:00 99.2 89 18 105/64 (78) 97 04/08/20 21:00 Room Air 04/08/20 20:00 98.8 94 18 111/72 (85) 100 Intake and Output 04/08/20 04/09/20 19:00 07:00 Intake Total 902.5 ml 480 ml Balance 902.5 ml 480 ml Intake Oral 750 ml 480 ml IV Total 152.5 ml # Voids 4 3 # Bowel Movements 1 Laboratory Tests 04/09/20 05:05: White Blood Count 9.7, Red Blood Count 3.34L, Hemoglobin 8.5L, Hematocrit 27.3L , Mean Corpuscular Volume 82, Mean Corpuscular Hemoglobin 25.5L, Mean Corpuscular Hemoglobin Concent 31.2L, Red Cell Distribution Width 20.0H, Platelet Count 126L, Mean Platelet Volume 7.2, Neutrophils (%) (Auto) 77.1H, Lymphocytes (%) (Auto) 8.8L, Monocytes (%) (Auto) 12.3H, Eosinophils (%) (Auto) 0.7, Basophils (%) (Auto) 1.1, Sodium Level 141, Potassium Level 2.9L, Chloride Level 107, Carbon Dioxide Level 27, Anion Gap 8, Blood Urea Nitrogen 1L, Creatinine 0.5L, Estimat Glomerular Filtration Rate > 60, Glucose Level 95, Calcium Level 7.9L, Total Bilirubin 0.9, Aspartate Amino Transf (AST/SGOT) 39H, Alanine Aminotransferase (ALT/SGPT) 56, Alkaline Phosphatase 384H, Total Protein 5.4L, Albumin 2.0L, Globulin 3.4, Albumin/Globulin Ratio 0.6L Height (Feet): 5 Height (Inches): 2.00 Weight (Pounds): 111 Objective Thin woman NCAT supple CTA RR abd soft NT ND no edema Asuncion Stapleton MD Apr 09, 2020 16:11
[2020-04-09] MEDS: Dyna-Hex 2% Top Sol 2oz TOPIC SCH (19:35)
[2020-04-09 19:44] VITALS: BP 109/75
[2020-04-09] MEDS: Zolpidem 5mg tab ORAL PRN (23:01)
[2020-04-10 04:00] VITALS: BP 115/80
[2020-04-10] MEDS: Piperacillin/Tazobactam 3.375 GM in NS 110 ML IVPB SCH (05:26)
[2020-04-10] MEDS: Heparin 5000 units/ml inj SUBQ SCH ×3 (05:27→22:33)
[2020-04-10 07:58] LABS: ALANINE AMINOTRANSFERASE 60 U/L (12-78); ALBUMIN 2.2 G/DL (3.4-5.0); ALBUMIN/GLOBULIN RATIO 0.6 (1.0-2.7); ALKALINE PHOSPHATASE 411 U/L (46-116); ANION GAP 9 mmol/L (5-15); ASPARTATE AMINO TRANSFERASE 44 U/L (15-37); CALCIUM 8.5 MG/DL (8.5-10.1); CARBON DIOXIDE 24 MMOL/L (21-32); CHLORIDE 107 MMOL/L (98-107); CREATININE 0.5 MG/DL (0.55-1.30); POTASSIUM 3.7 MMOL/L (3.5-5.1); SODIUM 140 MMOL/L (136-145)
[2020-04-10 08:00] VITALS: BP 100/69
[2020-04-10] MEDS: Docusate 100mg cap ORAL SCH ×2 (08:04→17:08)
[2020-04-10] MEDS: Pantoprazole Inj IVP SCH (08:04)
[2020-04-10] MEDS: HYDROmorphone 1mg/ml Carpuject IVP PRN ×3 (08:05→18:04)
[2020-04-10 08:31] LABS: BLOOD UREA NITROGEN 2 mg/dL (7-18)
--- NOTE | 2020-04-10 09:51 | General Progress Note ---
Assessment/Plan Problem List: (1) COVID-19 ruled out ICD Codes: Z03.818 - Encounter for observation for suspected exposure to other biological agents ruled out SNOMED: 990680054, 298728924 (2) Syncope ICD Codes: R55 - Syncope and collapse SNOMED: 823725587 Qualifiers: Qualified Codes: R55 - Syncope and collapse (3) Metastatic colon cancer in female ICD Codes: C18.9 - Malignant neoplasm of colon, unspecified SNOMED: 870718361, 966309279 (4) Sepsis ICD Codes: A41.9 - Sepsis, unspecified organism SNOMED: 32237265, 142406514 Qualifiers: Qualified Codes: A41.9 - Sepsis, unspecified organism; R65.20 - Severe sepsis without septic shock Status: stable Assessment/Plan: cont iv abx monitor WBC follow up cultures antimetics pain rx as needed dvt/stress ulcer prophylaxis conservative rx per GI/surgery dc planning once able to switch to oral abx Subjective Allergies: Coded Allergies: MORPHINE (Verified Allergy, Unknown, 04/05/20) Subjective no events. w/o complaints. tolerating po. remains on iv abx. no fever or chills. no sob. id noted. WBC improving. overall feels better. wondering when she can go home. all noted. Objective Last 24 Hour Vital Signs Date Time Temp Pulse Resp B/P (MAP) Pulse Ox O2 Delivery O2 Flow Rate FiO2 04/10/20 09:00 Room Air 04/10/20 08:00 99.1 92 16 100/69 (79) 98 04/10/20 04:00 98.9 89 16 115/80 (92) 99 04/09/20 21:00 Room Air 04/09/20 19:44 99.4 99 18 109/75 (86) 99 04/09/20 16:00 98.6 89 20 111/78 (89) 98 04/09/20 13:38 98.2 04/09/20 12:00 98.2 90 18 124/79 (94) 100 Intake and Output 04/09/20 04/10/20 19:00 07:00 Intake Total 900 ml 1650 ml Balance 900 ml 1650 ml Intake Oral 900 ml 400 ml IV Total 1250 ml # Voids 4 3 Laboratory Tests 04/10/20 05:20: Sodium Level 140, Potassium Level 3.7, Chloride Level 107, Carbon Dioxide Level 24, Anion Gap 9, Blood Urea Nitrogen 2L, Creatinine 0.5L, Estimat Glomerular Filtration Rate > 60, Glucose Level 74, Calcium Level 8.5, Total Bilirubin 1.0, Aspartate Amino Transf (AST/SGOT) 44H, Alanine Aminotransferase (ALT/SGPT) 60, Alkaline Phosphatase 411H, Total Protein 6.0L, Albumin 2.2L, Globulin 3.8, Albumin/Globulin Ratio 0.6L Height (Feet): 5 Height (Inches): 2.00 Weight (Pounds): 111 Objective General Appearance: WD/WN, no apparent distress, alert EENT: normal ENT inspection, pharynx normal Neck: non-tender, normal alignment, supple, normal inspection Cardiovascular: normal peripheral pulses, normal rate, regular rhythm Respiratory/Chest: chest wall non-tender, lungs clear, normal breath sounds, no respiratory distress, no accessory muscle use Abdomen: normal bowel sounds, non tender, soft, no organomegaly, no mass Extremities: normal range of motion, non-tender Edema: no edema noted Arm (L), no edema noted Arm (R) 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
--- NOTE | 2020-04-10 11:28 | Infectious Diseases Prog Note ---
Assessment/Plan Assessment/Plan antibiotics : zosyn A 1. cholecystitis, cholangitis 2. colon cancer with metastasis 3. leucocytosis resolved 4. hypertension P 1. d/c zosyn 2. start and continue po levoquin 4 more days 3. will follow up cultures Subjective ROS Limited/Unobtainable: Yes Allergies: Coded Allergies: MORPHINE (Verified Allergy, Unknown, 04/05/20) Objective Last 24 Hour Vital Signs Date Time Temp Pulse Resp B/P (MAP) Pulse Ox O2 Delivery O2 Flow Rate FiO2 04/10/20 09:00 Room Air 04/10/20 08:00 99.1 92 16 100/69 (79) 98 04/10/20 04:00 98.9 89 16 115/80 (92) 99 04/09/20 21:00 Room Air 04/09/20 19:44 99.4 99 18 109/75 (86) 99 04/09/20 16:00 98.6 89 20 111/78 (89) 98 04/09/20 13:38 98.2 04/09/20 12:00 98.2 90 18 124/79 (94) 100 Height (Feet): 5 Height (Inches): 2.00 Weight (Pounds): 111 Respiratory/Chest: lungs clear Cardiovascular: normal rate, regular rhythm, no gallop/murmur Abdomen: tender Extremities: no edema, other - right subclavian catheter Laboratory Tests Test 04/10/20 05:20 Sodium Level 140 MMOL/L (136-145) Potassium Level 3.7 MMOL/L (3.5-5.1) Chloride Level 107 MMOL/L (98-107) Carbon Dioxide Level 24 MMOL/L (21-32) Anion Gap 9 mmol/L (5-15) Blood Urea Nitrogen 2 mg/dL (7-18) L Creatinine 0.5 MG/DL (0.55-1.30) L Estimat Glomerular Filtration Rate > 60 mL/min (>60) Glucose Level 74 MG/DL (74-106) Calcium Level 8.5 MG/DL (8.5-10.1) Total Bilirubin 1.0 MG/DL (0.2-1.0) Aspartate Amino Transf (AST/SGOT) 44 U/L (15-37) H Alanine Aminotransferase (ALT/SGPT) 60 U/L (12-78) Alkaline Phosphatase 411 U/L (46-116) H Total Protein 6.0 G/DL (6.4-8.2) L Albumin 2.2 G/DL (3.4-5.0) L Globulin 3.8 g/dL Albumin/Globulin Ratio 0.6 (1.0-2.7) L Current Medications Medications (Trade) Dose Ordered Sig/Gómez Route PRN Reason Start Time Stop Time Status Last Admin Dose Admin Acetaminophen (Tylenol) 650 mg Q4H PRN ORAL fever/pain/NAM 04/06/20 13:45 05/05/20 09:44 Chlorhexidine Gluconate ([place]-Hex 2%) 1 applic DAILY@2000 TOPIC 04/06/20 20:00 07/05/20 19:59 04/09/20 19:35 Docusate Sodium (Colace) 100 mg TWICE A DAY ORAL 04/07/20 18:00 05/07/20 17:59 04/10/20 08:04 Heparin Sodium (Porcine) (Heparin 5000 units/ml) 5,000 units EVERY 8 HOURS SUBQ 04/06/20 14:00 05/20/20 13:59 04/08/20 05:08 Hydromorphone HCl (Dilaudid) 1 mg Q4H PRN IVP PAIN 4-10 04/06/20 14:00 04/12/20 17:59 04/10/20 08:05 Ondansetron HCl (Zofran) 4 mg Q4H PRN IVP Nausea & Vomiting 04/06/20 13:45 05/05/20 09:44 04/09/20 18:03 Pantoprazole (Protonix) 40 mg DAILY IVP 04/08/20 13:00 05/08/20 12:59 04/10/20 08:04 Piperacillin Sod/ Tazobactam Sod 3.375 gm/Sodium Chloride 110 ml @ 27.5 mls/hr EVERY 8 HOURS IVPB 04/06/20 14:00 04/12/20 13:59 04/10/20 05:26 Polyethylene Glycol (Miralax) 17 gm DAILY ORAL 04/10/20 11:30 05/10/20 11:29 UNV Sodium Chloride 1,000 ml @ 125 mls/hr Q8H IV 04/06/20 13:40 05/05/20 13:39 04/10/20 05:26 Zolpidem Tartrate (Ambien) 5 mg HSPRN PRN ORAL Insomnia 04/09/20 21:30 04/16/20 21:29 04/09/20 23:01 Jeffrey Szymanski MD Apr 10, 2020 11:28
[2020-04-10 12:00] VITALS: BP 123/74
[2020-04-10] MEDS: Levofloxacin 500mg tab ORAL SCH (12:07)
[2020-04-10] MEDS: Miralax 17gm pkt ORAL SCH (12:07)
--- NOTE | 2020-04-10 14:23 | Surgery Progress Note ---
Surgery Progress Note Subjective Symptoms: improved, tolerating diet, voiding well, passing flatus Objective Last 24 Hour Vital Signs Date Time Temp Pulse Resp B/P (MAP) Pulse Ox O2 Delivery O2 Flow Rate FiO2 04/10/20 12:00 98.3 87 19 123/74 (90) 97 04/10/20 09:00 Room Air 04/10/20 08:00 99.1 92 16 100/69 (79) 98 04/10/20 04:00 98.9 89 16 115/80 (92) 99 04/09/20 21:00 Room Air 04/09/20 19:44 99.4 99 18 109/75 (86) 99 04/09/20 16:00 98.6 89 20 111/78 (89) 98 I&O Intake and Output 04/09/20 04/10/20 19:00 07:00 Intake Total 900 ml 1650 ml Balance 900 ml 1650 ml Intake Oral 900 ml 400 ml IV Total 1250 ml # Voids 4 3 Dressing: saturated Wound: clean Cardiovascular: RSR Respiratory: clear, decreased breath sounds Abdomen: soft, distended, present bowel sounds, other Extremities: no edema, no tenderness, no cyanosis Laboratory Tests Test 04/10/20 05:20 Sodium Level 140 MMOL/L (136-145) Potassium Level 3.7 MMOL/L (3.5-5.1) Chloride Level 107 MMOL/L (98-107) Carbon Dioxide Level 24 MMOL/L (21-32) Anion Gap 9 mmol/L (5-15) Blood Urea Nitrogen 2 mg/dL (7-18) L Creatinine 0.5 MG/DL (0.55-1.30) L Estimat Glomerular Filtration Rate > 60 mL/min (>60) Glucose Level 74 MG/DL (74-106) Calcium Level 8.5 MG/DL (8.5-10.1) Total Bilirubin 1.0 MG/DL (0.2-1.0) Aspartate Amino Transf (AST/SGOT) 44 U/L (15-37) H Alanine Aminotransferase (ALT/SGPT) 60 U/L (12-78) Alkaline Phosphatase 411 U/L (46-116) H Total Protein 6.0 G/DL (6.4-8.2) L Albumin 2.2 G/DL (3.4-5.0) L Globulin 3.8 g/dL Albumin/Globulin Ratio 0.6 (1.0-2.7) L Plan Problems: (1) COVID-19 ruled out (2) Syncope (3) Sepsis Assessment & Plan: Patient with colon cancer on chemotherapy severe leukocytosis febrile syncope. Abdominal pain. No nausea vomiting Patient is fairly immunocompromise ill-appearing is been fighting colon cancer some time now. Has a history of radiation and has received chemotherapy and is currently receiving chemotherapy. Her abdominal distention and pain is mass related she seems to have carcinomatosis. Prior melena surgeries identified. Fortunately she is nonobstructed this time. Tolerating diet having bowel movements. Would not recommend any acute surgical intervention for this time for patient. I do long discussion with patient at bedside regards to her care and care plan. Unfortunately she is not a surgical candidate at this time even if worsening condition or becomes obstructed. I had a discussion with patient regards to her care plan and goals. She specs understanding that she is been told prior she is not a surgical candidate and that she understands if complication arises difficult conversation will need to be had. Currently staying optimistic in hopes that chemotherapy will cure all her problems. Will monitor abdominal examination okay for diet for now bowel regimen ordered thank you [facility] participate in patient's care (4) Metastatic colon cancer in female Assessment & Plan: uterus is evident. It is abnormal in appearance, with a very indistinct and possibly thickened endometrial stripe. Adjacent to the uterus, due to its right, is a large lobulated mass which measures 8 cm AP by 8.6 cm transverse. This is connected to a rounded peritoneal mass which measures 2.3 cm. There is a mass within the lesser sac just cephalad to the body of the pancreas which measures 4.7 cm. There is a mass in the wall of the ascending colon which measures approximately 4 cm AP by 2.5 cm transverse by 4.2 cm craniocaudad. More ill-defined soft tissue opacities are seen in the anterior peritoneal space and in the omentum. Innumerable low-attenuation lesions are seen scattered throughout the liver. Liver demonstrates an unusual capsular calcifications posteriorly. The gallbladder is nondistended, contains gallstones. No biliary ductal dilatation. The above described peripancreatic lesion is extrapancreatic, and the pancreas itself appears unremarkable. The spleen is upper limits of normal in size. There is a 9 mm mass within the anterior spleen. The adrenals are unremarkable., The kidneys are unremarkable. No retroperitoneal or mesenteric mass or adenopathy demonstrated. There is a circumaortic left renal vein incidentally noted. No evidence of diverticulosis or diverticulitis. The appendix is not definitely visualized, but no findings to suggest acute appendicitis are evident. No small bowel distention. Ingested contrast is seen all the way through the small bowel and most of the way through the colon. No small bowel wall thickening. No free or loculated intraperitoneal gas or fluid is evident. The distal esophagus is unremarkable. There is wall thickening of the gastric antrum and duodenal bulb. The included lung bases demonstrate multiple masses bilaterally. The bones are unremarkable. Impression: Evidence of disseminated neoplasm in patient with known history of colon carcinoma, with numerous masses in the pelvis, peritoneal space, omentum, lesser sac, liver, spleen, and visualized lung bases. There is also a mass that appears to be within the wall of the ascending colon Abnormal wall thickening of the gastric antrum and duodenal bulb. This may indicate gastritis or other inflammatory process, but could also indicate neoplastic infiltration. Theron Mccarthy Apr 10, 2020 14:23
[2020-04-10 16:00] VITALS: BP 125/70
[2020-04-10 20:00] VITALS: BP 102/69
[2020-04-10] MEDS: Zolpidem 5mg tab ORAL PRN (21:17)
[2020-04-10] MEDS: Dyna-Hex 2% Top Sol 2oz TOPIC SCH (21:17)
--- NOTE | 2020-04-10 21:37 | General Progress Note ---
Assessment/Plan Status: stable Assessment/Plan: Assessment - Widely metastatic colon CA - Leukocytosis/sepsis on admit - resolved - abnormal LFT - resolving - poor surgical candidacy - would manage conservatively - cholelithiasis - possible gastritis / duodenitis per CT - anal fissure - cause of streaks of hematochezia Recommendations - po diet as tolerated - PPI - abx - follow labs and exam - agree with non-operative management - Milralax Subjective Allergies: Coded Allergies: MORPHINE (Verified Allergy, Unknown, 04/05/20) Subjective Feels OK tolerating PO (+) BM - brown - with small streak of blood around it Objective Last 24 Hour Vital Signs Date Time Temp Pulse Resp B/P (MAP) Pulse Ox O2 Delivery O2 Flow Rate FiO2 04/10/20 20:42 Room Air 04/10/20 20:00 98.4 100 18 102/69 (80) 98 04/10/20 16:00 98.0 89 18 125/70 (88) 99 04/10/20 12:00 98.3 87 19 123/74 (90) 97 04/10/20 09:00 Room Air 04/10/20 08:00 99.1 92 16 100/69 (79) 98 04/10/20 04:00 98.9 89 16 115/80 (92) 99 Intake and Output 04/09/20 04/10/20 19:00 07:00 Intake Total 900 ml 1650 ml Balance 900 ml 1650 ml Intake Oral 900 ml 400 ml IV Total 1250 ml # Voids 4 3 Laboratory Tests 04/10/20 05:20: Sodium Level 140, Potassium Level 3.7, Chloride Level 107, Carbon Dioxide Level 24, Anion Gap 9, Blood Urea Nitrogen 2L, Creatinine 0.5L, Estimat Glomerular Filtration Rate > 60, Glucose Level 74, Calcium Level 8.5, Total Bilirubin 1.0, Aspartate Amino Transf (AST/SGOT) 44H, Alanine Aminotransferase (ALT/SGPT) 60, Alkaline Phosphatase 411H, Total Protein 6.0L, Albumin 2.2L, Globulin 3.8, Albumin/Globulin Ratio 0.6L Height (Feet): 5 Height (Inches): 2.00 Weight (Pounds): 111 Objective Thin woman NCAT supple CTA RR abd soft NT ND Rectal (04/10) with RN: anal fissure no edema Asuncion Stapleton MD Apr 10, 2020 21:37
[2020-04-11 00:58] VITALS: BP 99/64
[2020-04-11] MEDS: HYDROmorphone 1mg/ml Carpuject IVP PRN (01:28)
[2020-04-11 04:00] VITALS: BP 108/77
[2020-04-11] MEDS: Heparin 5000 units/ml inj SUBQ SCH (05:46)
[2020-04-11] MEDS ORDERED: LEVAQUIN500 MG ORAL (06:50)
--- NOTE | 2020-04-11 07:30 | Discharge Summary ---
DATE OF ADMISSION: 04/05/2020 DATE OF DISCHARGE: 04/11/2020 ADMISSION DIAGNOSES: 1. Sepsis. 2. History of metastatic colon cancer. DISCHARGE DIAGNOSES: 1. Sepsis. 2. History of metastatic colon cancer. 3. . 4. Cholecystitis. HOSPITAL COURSE: The patient is a 49-year-old female with history of metastatic colon cancer who presented with complaints of dizziness. She had a CAT scan that showed questionable cholecystitis. She was treated conservatively with IV antibiotic therapy. Clinically, she improved with antibiotics. Surgery, ID, Cardiology evaluations were all obtained. On discharge, the patient was stable. She will complete an additional four days of oral antibiotic therapy for cholecystitis. She has been instructed to follow up with her PMD. DISCHARGE MEDICATIONS: Please see discharge medication list for discharge medications. DIET: Regular diet. ACTIVITY: Ad-leela. London Red M.D. DR: Minesh JOB#: [id number] CC:
[2020-04-11] MEDS ORDERED: Heplock Flush 100 units/ml 3 ml syr INJ SCH (07:45)
[2020-04-11 08:00] VITALS: BP_SYST 116; BP_DIAS 73; BP_DIAS 76
[2020-04-11] MEDS: Pantoprazole Inj IVP SCH (08:32)
[2020-04-11] MEDS: Levofloxacin 500mg tab ORAL SCH (08:32)
[2020-04-11] MEDS: Docusate 100mg cap ORAL SCH (08:32)
[2020-04-11] MEDS: Miralax 17gm pkt ORAL SCH (08:32)
--- NOTE | 2020-04-11 21:04 | General Progress Note ---
Assessment/Plan Status: stable Assessment/Plan: Assessment - Widely metastatic colon CA - Leukocytosis/sepsis on admit - resolved - abnormal LFT - resolving - poor surgical candidacy - would manage conservatively - cholelithiasis - possible gastritis / duodenitis per CT - anal fissure - cause of streaks of hematochezia Recommendations - po diet as tolerated - PPI - abx - follow labs and exam - agree with non-operative management - Milralax Subjective Allergies: Coded Allergies: MORPHINE (Verified Allergy, Unknown, 04/05/20) Subjective Feels OK tolerating PO BM now soft no further BRBPR Objective Last 24 Hour Vital Signs Date Time Temp Pulse Resp B/P (MAP) Pulse Ox O2 Delivery O2 Flow Rate FiO2 04/11/20 09:00 Room Air 04/11/20 08:00 98.4 99 16 116/76 (89) 98 04/11/20 04:00 98.4 101 18 108/77 (87) 98 04/11/20 00:58 98.8 101 18 99/64 (76) 98 Intake and Output 04/10/20 04/11/20 19:00 07:00 Intake Total 2185 ml 475 ml Balance 2185 ml 475 ml Intake Oral 700 ml 350 ml IV Total 1485 ml 125 ml # Voids 3 2 Height (Feet): 5 Height (Inches): 2.00 Weight (Pounds): 111 Objective Thin woman NCAT supple CTA RR abd soft NT ND Rectal (04/10) with RN: anal fissure no edema Asuncion Stapleton MD Apr 11, 2020 21:04
== END 2020-04-11 09:35 | disposition home health service (06) | DRG 871 ==
LOC: EDBD 06:55 → EMR 07:18 → 2E 07:32 → EDBEDREQ 09:28 → 2E 04-06 04:37 → 3E 04-06 13:46
DX: A41.9 Sepsis, unspecified organism (principal); E43 Unspecified severe protein-calorie malnutrition; C78.5 Secondary malignant neoplasm of large intestine and rectum; C79.31 Secondary malignant neoplasm of brain; C78.7 Secondary malignant neoplasm of liver and intrahepatic bile duct; C78.00 Secondary malignant neoplasm of unspecified lung; K81.9 Cholecystitis, unspecified; I95.1 Orthostatic hypotension; E86.1 Hypovolemia; E86.0 Dehydration; Z85.038 Personal history of other malignant neoplasm of large intestine; I10 Essential (primary) hypertension; Z92.21 Personal history of antineoplastic chemotherapy; Z92.3 Personal history of irradiation; Z88.6 Allergy status to analgesic agent; D64.9 Anemia, unspecified; Z20.828 Contact with and (suspected) exposure to other viral communicable diseases; K60.2 Anal fissure, unspecified
CPT/HCPCS: 36415; 71045; 74177; 76700; 80053; 80202; 81003; 82248; 82550; 82728; 83605; 83615; 83690; 83735; 83880; 84443; 84484; 85007; 85025; 85610; 85730; 86140; 86850; 86900; 86901; 87040; 93005; 93970; 96361; 96365; 96367; 96368; 99291; J2405; J7030; J8499; U0002